=== PATIENT | female | born 1935 | race Caucasian/White ===

== ENCOUNTER → 2016-08-13 | Outpatient (CLI) | payer OTHER, MEDICARE | LOC: BHFA 14:00 | PROVIDERS: ATTEND Internal Medicine | DX: I25.10 Atherosclerotic heart disease of native coronary artery without angina pectoris (principal) ==

== ENCOUNTER → 2016-09-08 | Outpatient (CLI) | payer OTHER, MEDICARE | LOC: BHFA 14:00 | PROVIDERS: ATTEND Internal Medicine Cardiovascular Disease | DX: G45.9 Transient cerebral ischemic attack, unspecified (principal) ==

== ENCOUNTER 2016-10-17 21:56 | Emergency (ER) | payer OTHER, MEDICARE ==
[2016-10-17] MEDS ORDERED: ONDANSETRON 4 MG/2 ML VIAL ONE (22:05)
[2016-10-17] MEDS ORDERED: NS 1,000 ML IV ONE ×2 (22:12→23:23)
[2016-10-17] MEDS ORDERED: ONDANSETRON 4 MG/2 ML VIAL IVP ONE (22:12)
[2016-10-17 22:13] VITALS: TEMP 97.5
[2016-10-17 22:16] LABS: % IMMATURE GRANULYOCYTES 0.5 % (0.0-1.1); ABSOLUTE IMMATURE GRANULOCYTES 0.05 10^3/uL (0.00-0.10); ADD DIFF? NO; ADD MORPH? NO; ADD SCAN? NO; ATYPICAL LYMPHOCYTE FLAG 20 (0-99); FRAGMENT RBC FLAG 0 (0-99); HEMATOCRIT 49.5 % (38.0-47.0); HEMOGLOBIN 17.2 g/dL (12.6-16.3); LEFT SHIFT FLG 20 (0-99); LIPEMIA HEMOLYSIS FLAG 90 (0-99); MEAN CELL HEMOGLOBIN CONCENTR. 34.7 g/dL (32.4-36.7); MEAN CELL VOLUME 89.4 fL (81.5-99.8); MEAN PLATELET VOLUME 8.9 fL (8.7-11.7); PLATELET CLUMPS FLAG 0 (0-99); PLATELET COUNT 309 10^3/uL (150-400); RED BLOOD CELL COUNT 5.54 10^6/uL (4.18-5.33); RED CELL DISTRIBUTION WIDTH 13.2 % (11.5-15.2)
[2016-10-17 22:33] LABS: ANION GAP 9 mEq/L (8-16); CALCIUM 9.7 mg/dL (8.5-10.4); CARBON DIOXIDE 26 mEq/l (22-31); CHLORIDE 91 mEq/L (97-110); CREATININE 0.7 mg/dL (0.6-1.0); GLOMERULAR FILTRATION RATE > 60; GLUCOSE 135 mg/dL (70-100); POTASSIUM 3.3 mEq/L (3.5-5.2); SODIUM 126 mEq/L (134-144)
--- NOTE | 2016-10-17 23:10 | EDPHY ---
H & P Stated Complaint: NAUSEA VOMITING AND DIARRHEA Time Seen by Provider: 10/17/16 22:42 HPI/ROS: Chief Complaint: Vomiting and diarrhea HPI: 80-year-old woman states that she had an episode of vomiting after eating strip at 6 o'clock tonight. Patient states that the started out with some nausea and dry heaves that she attributes to frequent episodes of GERD. She took medicine after the onset of symptoms but vomited about 7 o'clock. She then had an episode of loose stools. 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 She frequently gets which she is describing is GERD symptoms of dry he was about every other day. She denies fevers or chills. Has not had any pain. Currently no nausea. No chest pain or shortness of breath. ROS: 10 point Review of Systems is negative except as noted in the HPI. PMH: Colitis, depression, GERD, arthritis Social History: Positive for smoking, daily alcohol, no recreational drug use Family History: non-contributory Physical Exam: Gen: Awake, Alert, No Distress HEENT: Nose: no rhinorrhea Eyes: PERRLA, EOMI Mouth: Dry mucosa Neck: Supple, no JVD Chest: nontender, lungs clear to auscultation Heart: S1, S2 normal, no murmur Abd: Soft, non-tender, no guarding Back: no CVA tenderness, no midline tenderness Ext: no edema, non-tender Skin: no rash Neuro: CN II-XII intact, Sensation grossly intact, Strength 5/5 in bilateral upper and lower extremities - Personal History Current Tetanus/Diphtheria Vaccine: Yes Current Tetanus Diphtheria and Acellular Pertussis (TDAP): Yes - Medical/Surgical History Hx Asthma: No Hx Chronic Respiratory Disease: No Hx Diabetes: No Hx Cardiac Disease: No Hx Renal Disease: No Hx Cirrhosis: No Hx Alcoholism: No Hx HIV/AIDS: No Hx Splenectomy or Spleen Trauma: No Other PMH: HTN, DEPRESSION, GERD, MICROPLASTIC COLITIS,. DEGENERATIVE DISKS, ARTHRITIS, HAND SURGERY - Social History Smoking Status: Current every day smoker Constitutional: Initial Vital Signs Temperature (C) 36.4 C 10/17/16 22:00 Heart Rate 69 10/17/16 22:00 Respiratory Rate 16 10/17/16 22:00 Blood Pressure 121/69 H 10/17/16 22:00 O2 Sat (%) 95 10/17/16 22:00 O2 Delivery Mode Room Air Allergies/Adverse Reactions: niacin [Niacin] Allergy (Verified 10/17/16 22:14) Penicillins Allergy (Verified 10/17/16 22:14) Sulfa (Sulfonamide Antibiotics) Allergy (Verified 10/17/16 22:14) Home Medications: Medication Instructions Recorded ATENOLOL [Atenolol 50 mg] 50 mg PO DAILY 05/20/11 Diovan Hct 320-12.5 mg Tab 05/20/11 FEXOFENADINE HCL 60 05/20/11 LEXAPRO 10 mg PO AC 05/20/11 Nasonex 05/20/11 Patanol 0.1% 05/20/11 Calcium + D 06/26/11 Colace 06/26/11 Fish Oil 1,400 mg Softgel 06/26/11 Garlic 06/26/11 Ibuprofen 06/26/11 Metamucil 06/26/11 Methylin 20 mg PO QID 06/26/11 Pyei-Szd-Tywuv 0.5 mg Tab Chw 06/26/11 VITAMIN B-2 06/26/11 traMADOL 06/26/11 Atorvastatin Calcium [Lipitor] 40 mg PO 10/17/16 oxyCODONE/APAP 5/325 [Percocet] 1 - 2 tab PO Q4-6PRN PRN 10/17/16 Medical Decision Making - Data Points Laboratory Results: Laboratory Results 10/17/16 22:14 10/17/16 22:14 10/17/16 10/17/16 22:14 22:14 WBC 9.81 10^3/uL H 10^3/uL (3.80-9.50) RBC 5.54 10^6/uL H 10^6/uL (4.18-5.33) Hgb 17.2 g/dL H g/dL (12.6-16.3) Hct 49.5 % H % (38.0-47.0) MCV 89.4 fL fL (81.5-99.8) MCH 31.0 pg pg (27.9-34.1) MCHC 34.7 g/dL g/dL (32.4-36.7) RDW 13.2 % % (11.5-15.2) Plt Count 309 10^3/uL 10^3/uL (150-400) MPV 8.9 fL fL (8.7-11.7) Neut % (Auto) 80.4 % H % (39.3-74.2) Lymph % (Auto) 13.4 % L % (15.0-45.0) Hale % (Auto) 5.1 % % (4.5-13.0) Eos % (Auto) 0.0 % L % (0.6-7.6) Baso % (Auto) 0.6 % % (0.3-1.7) Nucleat RBC Rel Count 0.0 % % (0.0-0.2) Absolute Neuts (auto) 7.89 10^3/uL H 10^3/uL (1.70-6.50) Absolute Lymphs (auto) 1.31 10^3/uL 10^3/uL (1.00-3.00) Absolute Monos (auto) 0.50 10^3/uL 10^3/uL (0.30-0.80) Absolute Eos (auto) 0.00 10^3/uL L 10^3/uL (0.03-0.40) Absolute Basos (auto) 0.06 10^3/uL 10^3/uL (0.02-0.10) Absolute Nucleated RBC 0.00 10^3/uL 10^3/uL (0-0.01) Immature Gran % 0.5 % % (0.0-1.1) Immature Gran # 0.05 10^3/uL 10^3/uL (0.00-0.10) Sodium 126 mEq/L L mEq/L (134-144) Potassium 3.3 mEq/L L mEq/L (3.5-5.2) Chloride 91 mEq/L L mEq/L (97-110) Carbon Dioxide 26 mEq/l mEq/l (22-31) Anion Gap 9 mEq/L mEq/L (8-16) BUN 8 mg/dL mg/dL (7-23) Creatinine 0.7 mg/dL mg/dL (0.6-1.0) Estimated GFR > 60 Glucose 135 mg/dL H mg/dL (70-100) Calcium 9.7 mg/dL mg/dL (8.5-10.4) Medications Given: Discontinued Medications Sodium Chloride (Ns) 1,000 mls @ 0 mls/hr IV ONCE ONE PRN Reason: Wide Open Stop: 10/17/16 22:13 Last Admin: 10/17/16 22:12 Dose: 1,000 mls Ondansetron HCl (Zofran) 4 mg IVP EDNOW ONE Stop: 10/17/16 22:13 Last Admin: 10/17/16 22:13 Dose: 4 mg Departure - Departure Clinical Impression: Hyponatremia, Hypokalemia, Vomiting, Dehydration Condition: Good Instructions: Hypokalemia (ED), Hyponatremia (ED), Acute Nausea and Vomiting ( ED), Acute Diarrhea (ED) Additional Instructions: Follow up with your primary care physician in 2-3 days. Make sure to drink plenty of fluids. We will need to have your blood sodium and potassium recheck next week. Return to the emergency depart for increasing nausea, vomiting and diarrhea, fevers, chills, abdominal pain, or any other concerns. Referrals: Christiana Galarza MD [Primary Care Provider] - As per Instructions
[2016-10-18 00:24] VITALS: BP 128/76; PULSE 71; RESP 18; O2SAT 94
== END 2016-10-18 00:40 | disposition home or self-care (01) ==
DX: R11.10 Vomiting, unspecified (principal); E87.6 Hypokalemia; E87.1 Hypo-osmolality and hyponatremia; E86.0 Dehydration; I10 Essential (primary) hypertension; F17.200 Nicotine dependence, unspecified, uncomplicated
CPT/HCPCS: 96361; 96374; 99284; J2405

== ENCOUNTER → 2016-10-24 | Outpatient (CLI) | payer OTHER, MEDICARE ==
[~2016-10-24] MED LIST: IOPAMIDOL (ISOVUE 370) 100 ML BTL IV ONE
== END ==
LOC: FIMAGING 12:33
PROVIDERS: ATTEND Surgery
DX: I65.22 Occlusion and stenosis of left carotid artery (principal); I65.01 Occlusion and stenosis of right vertebral artery
CPT/HCPCS: 70498; Q9967

== ENCOUNTER → 2016-11-20 | Outpatient (CLI) | payer OTHER, MEDICARE ==
[~2016-11-20] MED LIST changes: +DEPO METHYLPREDNISOLONE 40 MG/ML SDV ONE; +LIDOCAINE 1% 30 ML SDV ONE; +NA BICARBONATE 50 MEQ/50 ML VIAL ONE; +ROPIVACAINE HCL 150 MG/30 ML INJ ONE
== END ==
LOC: FIMAGING 12:42 → EEVIPCON 12:42
PROVIDERS: ATTEND Orthopaedic Surgery
PROC: 3E0U33Z Introduction of Anti-inflammatory into Joints, Percutaneous Approach (ICD-10-PCS; principal; 2016-11-20)
PROC: 3E0U3BZ Introduction of Anesthetic Agent into Joints, Percutaneous Approach (ICD-10-PCS; principal; 2016-11-20)
DX: M25.552 Pain in left hip (principal)
CPT/HCPCS: 20610; J1030; J2795; Q9967

== ENCOUNTER → 2016-12-04 | Outpatient (CLI) | payer OTHER, MEDICARE | LOC: FIMAGING 14:04 | PROVIDERS: ATTEND Internal Medicine | DX: Z12.31 Encounter for screening mammogram for malignant neoplasm of breast (principal); Z80.3 Family history of malignant neoplasm of breast | CPT/HCPCS: G0202 ==

== ENCOUNTER → 2017-01-22 | Outpatient (CLI) | payer OTHER, MEDICARE | LOC: BHFA 13:30 | PROVIDERS: ATTEND Internal Medicine Cardiovascular Disease | DX: R06.09 Other forms of dyspnea (principal); I25.10 Atherosclerotic heart disease of native coronary artery without angina pectoris | CPT/HCPCS: 78452; 93017; A9500; J2785 ==

== ENCOUNTER → 2017-04-08 | Day surgery (SDC) | payer OTHER, MEDICARE ==
[2017-03-20 16:56] LABS: HIPAA RELEASE SIGNED SIGNED
[2017-03-20 17:01] LABS: % IMMATURE GRANULYOCYTES 0.2 % (0.0-1.1); ABSOLUTE IMMATURE GRANULOCYTES 0.02 10^3/uL (0.00-0.10); ADD DIFF? NO; ADD MORPH? NO; ADD SCAN? NO; ATYPICAL LYMPHOCYTE FLAG 30 (0-99); FRAGMENT RBC FLAG 0 (0-99); HEMATOCRIT 45.8 % (38.0-47.0); HEMOGLOBIN 15.7 g/dL (12.6-16.3); LEFT SHIFT FLG 0 (0-99); LIPEMIA HEMOLYSIS FLAG 90 (0-99); MEAN CELL HEMOGLOBIN CONCENTR. 34.3 g/dL (32.4-36.7); MEAN CELL VOLUME 90.3 fL (81.5-99.8); PLATELET CLUMPS FLAG 0 (0-99); PLATELET COUNT 304 10^3/uL (150-400); RED BLOOD CELL COUNT 5.07 10^6/uL (4.18-5.33)
[2017-03-20 17:31] LABS: ANION GAP 11 mEq/L (8-16); CALCIUM 9.4 mg/dL (8.5-10.4); CARBON DIOXIDE 25 mEq/l (22-31); CHLORIDE 97 mEq/L (97-110); CREATININE 0.6 mg/dL (0.6-1.0); GLOMERULAR FILTRATION RATE > 60; GLUCOSE 92 mg/dL (70-100); POTASSIUM 4.4 mEq/L (3.5-5.2); SODIUM 133 mEq/L (134-144)
[~2017-04-08] MED LIST changes: -DEPO METHYLPREDNISOLONE 40 MG/ML SDV ONE; -IOPAMIDOL (ISOVUE 370) 100 ML BTL IV ONE; -LIDOCAINE 1% 30 ML SDV ONE; -NA BICARBONATE 50 MEQ/50 ML VIAL ONE; +ROPIVACAINE 0.2% 80 MG, EPINEPHrine 0.2 MG, KETOROLAC TROMETHAMINE 30 MG in BAG 0 ML IU ONE; -ROPIVACAINE HCL 150 MG/30 ML INJ ONE; +TRANEXAMIC ACID 3,000 MG in NS 50 ML IRR ONE
--- NOTE | 2017-04-08 07:22 | PDHPUP ---
History & Physical Update H&P update statement: This history and physical update is based on an assessment of the patient which was completed after admission or registration (within 24 hours), but prior to the surgery/procedure. H&P update: H&P reviewed & patient examined H&P changes: Patient has open wounds on her surgical leg and groin. recommend cancelling surgery today. postpone until healed
== END | disposition home or self-care (01) ==
LOC: FSGY 06:04 → F3N 06:04 → UNDOADMIN 06:04 → EDSTATUS 08:15
PROVIDERS: ATTEND Orthopaedic Surgery
DX: Z53.9 Procedure and treatment not carried out, unspecified reason (principal); M16.12 Unilateral primary osteoarthritis, left hip; M51.86 Other intervertebral disc disorders, lumbar region; F32.9 Major depressive disorder, single episode, unspecified; I10 Essential (primary) hypertension; E78.00 Pure hypercholesterolemia, unspecified
CPT/HCPCS: J0171; J1885; J2795

== ENCOUNTER 2017-06-10 08:51 | Inpatient (IN) | payer OTHER, MEDICARE ==
[2017-06-10] MEDS ORDERED: TRANEXAMIC ACID 3,000 MG/50 ML BAG IRR ONE (08:59)
[2017-06-10] MEDS ORDERED: ROPIVACAINE 0.2% 80 MG, EPINEPHrine 0.2 MG, KETOROLAC TROMETHAMINE 30 MG in SYRINGE 0 ML IU ONE (09:00)
[2017-06-10] MEDS ORDERED: TRANEXAMIC ACID 3,000 MG in NS 50 ML IRR ONE (09:00)
[2017-06-10] MEDS ORDERED: ceFAZolin 2 GM/SWFI 2 GM/20 ML SYR IVP ONE (09:07)
[2017-06-10] MEDS ORDERED: FAMOTIDINE 20 MG TAB PO ONE (09:07)
[2017-06-10] MEDS ORDERED: ACETAMINOPHEN 325 MG TAB PO ONE (09:07)
[2017-06-10] MEDS ORDERED: DEXAMETHASONE 4 MG/ML VIAL IVP ONE (09:07)
[2017-06-10] MEDS ORDERED: LR 1,000 ML IV ONE (09:09)
[2017-06-10] MEDS ORDERED: LIDOCAINE 1% 2 ML INJ ID PRN (09:09)
--- NOTE | 2017-06-10 11:06 | PDANEPAE ---
ANE History of Present Illness left KD ANE Past Medical History - Cardiovascular History Hx Hypertension: Yes Hx Arrhythmias: No Hx Chest Pain: No Hx Coronary Artery / Peripheral Vascular Disease: No Hx CHF / Valvular Disease: No Hx Palpitations: No Cardiovascular History Comment: Stenosis Left carotid-seldom dizzy;. BP good control - Pulmonary History Hx COPD: No Hx Asthma/Reactive Airway Disease: No Hx Recent Upper Respiratory Infection: No Hx Oxygen in Use at Home: No Hx Sleep Apnea: No Sleep Apnea Screening Result - Last Documented: Negative Pulmonary History Comment: smokes 1/2 ppd - Neurologic History Hx Cerebrovascular Accident: No Hx Seizures: No Hx Dementia: No - Endocrine History Hx Diabetes: No - Renal History Hx Renal Disorders: No - Liver History Hx Hepatic Disorders: No - Neurological & Psychiatric Hx Hx Neurological and Psychiatric Disorders: Yes Neurological / Psychiatric History Comment: spinal stenosis, DDD -pain in butt radiates down R leg.Anxiety, depression - Cancer History Hx Cancer: Yes Cancer History Comment: basal cell on face - Congenital Disorder History Hx Congenital Disorders: No - GI History Hx Gastrointestinal Disorders: Yes Gastrointestinal History Comment: GERD - Other Health History Other Health History: OA L hip. BRIUSES EASILY - Chronic Pain History Chronic Pain: Yes (BACK ISSUES) - Surgical History Prior Surgeries: tonsillectomy age 7. C Sections 1963,1968. appy 1968. bilat cataract extractions w/IOL. total hysterectomy. bilat hand trigger fingers ANE Review of Systems Review of systems is: negative Review of Systems: - Exercise capacity Exercise capacity: <4 METS, limited by disability METS (RN): 3 METS ANE Patient History - Allergies Allergies/Adverse Reactions: Penicillins Allergy (Severe, Verified 06/10/17 10:21) Hives, itching, welts niacin [Niacin] Allergy (Intermediate, Verified 06/10/17 10:22) Itching Sulfa (Sulfonamide Antibiotics) Allergy (Intermediate, Verified 06/10/17 10:21) Itching - Home Medications Home Medications: Aspirin EC [Aspirin EC 81 mg (*)] 81 mg PO DAILY 03/12/17 [Last Taken 05/27/17] Atenolol [Tenormin 50 mg (*)] 50 mg PO DAILY 03/12/17 [Last Taken 06/10/17 07:30 ] Atorvastatin Calcium [Atorvastatin Calcium] 20 mg PO DAILY@18 03/12/17 [Last Taken 06/10/17 07:30] Calcium Carb W/Vit D [Calcium Carb W/Vit D 500/200 (*)] 500 mg PO BID 03/12/17 [ Last Taken Unknown] Cholecalciferol Vit D3 [Vitamin D3 (*)] 1,000 units PO DAILY 03/12/17 [Last Taken Unknown] DULoxetine [Cymbalta 30 MG (*)] 30 mg PO 1500 03/12/17 [Last Taken 06/09/17 15: 00] DULoxetine [Cymbalta 60 MG (*)] 60 mg PO DAILY 03/12/17 [Last Taken 06/10/17 07: 30] Glucosamine Sulfate [Glucosamine Sulfate 500 MG (*)] 500 mg PO DAILY 03/12/17 [ Last Taken Unknown] Herbals/Supplements -Info Only 1 ea PO DAILY 03/12/17 [Last Taken Unknown] Multivitamins [Multivitamin (*)] 1 each PO DAILY 03/12/17 [Last Taken Unknown] Naproxen Sodium [Aleve 220 MG (*)] 220 mg PO BID 03/12/17 [Last Taken Unknown] [place]-3 Fatty Acids [Fish Oil 1000 mg (*)] 1,000 mg PO BID 03/12/17 [Last Taken 05/27/17] Potassium Cl [Klor-Con 20 meq (*)] 20 meq PO DAILY 03/12/17 [Last Taken 07:30] Ranitidine HCl 150 mg PO BID 03/12/17 [Last Taken 06/10/17 07:30] Valsartan [Valsartan] 320 mg PO DAILY 03/12/17 [Last Taken 06/10/17 07:30] Vitamin B Complex [Super B-50 Complex] 1 each PO DAILY 03/12/17 [Last Taken ] methYLPHENIDATE HCL [Ritalin 10mg (*)] 10 mg PO 08,1500 03/12/17 [Last Taken 12/20 09:45] - NPO status NPO Status: no food or drink >8 hours NPO Since - Liquids (Date): 06/10/17 NPO Since - Liquids (Time): 05:00 NPO Since - Solids (Date): 06/09/17 NPO Since - Solids (Time): 19:00 - Anes Hx Anes Hx: no prior problems Hx Anesthesia Complications (with details): resistant to local anes - Smoking Hx Smoking Status: Heavy smoker - Alcohol Use Alcohol Use: Occasionally (7/wk) - Family Anes Hx Family Hx Anesthesia Complications: none ANE Labs/Vital Signs - Vital Signs Vital Signs: reviewed preoperatively; see RN documention for details Blood Pressure: 120/65 Heart Rate: 63 Respiratory Rate: 14 O2 Sat (%): 94 Height: 167.64 cm Weight: 71.668 kg ANE Physical Exam - Airway Neck exam: FROM Mallampati Score: Class 2 - Pulmonary Pulmonary: expiratory wheeze - Cardiovascular Cardiovascular: regular rate and rhythym - ASA Status ASA Status: III ANE Anesthesia Plan Anesthesia Plan: spinal
[2017-06-10] MEDS ORDERED: MIDAZOLAM 2 MG/2 ML VIAL IVP ONE (11:10)
[2017-06-10] MEDS ORDERED: DEXAMETHASONE 4 MG/ML VIAL ONE (11:40)
[2017-06-10] MEDS ORDERED: ACETAMINOPHEN 325 MG TAB ONE (11:41)
[2017-06-10] MEDS ORDERED: ceFAZolin 2 GM/SWFI 20 ML SYR IVP ONE (11:41)
[2017-06-10] MEDS ORDERED: FAMOTIDINE 20 MG TAB ONE (11:41)
[2017-06-10] MEDS ORDERED: LIDOCAINE 2% 5 ML SDV ONE (11:57)
[2017-06-10] MEDS ORDERED: PROPOFOL/EMULSION 500 MG/50 ML BOTTLE IV ONE (11:57)
--- NOTE | 2017-06-10 12:21 | PDHPUP ---
History & Physical Update H&P update statement: This history and physical update is based on an assessment of the patient which was completed after admission or registration (within 24 hours), but prior to the surgery/procedure. H&P update: H&P reviewed & patient examined, no change in patient's condition since H&P completed
[2017-06-10] MEDS ORDERED: fentaNYL 100 MCG/2 ML INJ ONE (12:29)
[2017-06-10] MEDS ORDERED: ONDANSETRON 4 MG/2 ML VIAL ONE (12:57)
[2017-06-10] MEDS ORDERED: TEMAZEPAM 15 MG CAP PO PRN (13:16)
[2017-06-10] MEDS ORDERED: POLYETHYLENE GLYCOL 3350 17 GM PKT PO PRN (13:16)
[2017-06-10] MEDS ORDERED: CYCLOBENZAPRINE 10 MG TAB PO PRN (13:16)
[2017-06-10] MEDS ORDERED: ONDANSETRON 4 MG/2 ML VIAL IVP PRN ×2 (13:16→13:21)
[2017-06-10] MEDS ORDERED: LACTULOSE 20 GM/30 ML UDCUP PO PRN (13:16)
[2017-06-10] MEDS ORDERED: MAGNESIUM HYDROXIDE 30 ML UDCUP PO PRN (13:16)
[2017-06-10] MEDS ORDERED: diphenhydrAMINE 25 MG CAP PO PRN (13:16)
[2017-06-10] MEDS ORDERED: PROMETHAZINE HCL 25 MG SUPPR PR PRN (13:16)
[2017-06-10] MEDS ORDERED: BISACODYL 10 MG SUPP PR PRN (13:16)
[2017-06-10] MEDS ORDERED: PROMETHAZINE HCL 25 MG/ML INJ IVP PRN (13:16)
[2017-06-10] MEDS ORDERED: ONDANSETRON DISINTEGRATING 4 MG TAB PO PRN (13:16)
--- NOTE | 2017-06-10 13:16 | POSTOPPROG ---
Post Op Note Date of Operation: 06/10/17 Surgeon: Matt Bundy Promotional Representative: cindy bundy Anesthesiologist: dr. zayas Anesthesia: GET(General Endotracheal), Spinal Pre-op Diagnosis: Left hip OA Post-op Diagnosis: same Indication: left hip pain due to OA that failed conservative measures Procedure: L KD ant approach Findings: severe hip OA Inf/Abcess present in the surg proc area at time of surgery?: No EBL: 100-500
[2017-06-10] MEDS ORDERED: PHENYLEPHRINE HCL 100 MCG/ML SYR IVP PRN (13:21)
[2017-06-10] MEDS ORDERED: HYDROCODONE/APAP 5/325 TAB PO PRN (13:21)
[2017-06-10] MEDS ORDERED: NALOXONE HCL 0.4 MG/ML INJ IVP PRN (13:21)
[2017-06-10] MEDS ORDERED: OXYCODONE/APAP 5/325 TAB PO PRN (13:21)
[2017-06-10] MEDS ORDERED: ALBUTEROL 3 ML DEYVIAL IH PRN (13:21)
[2017-06-10] MEDS ORDERED: fentaNYL 100 MCG/2 ML INJ IVP PRN (13:21)
--- NOTE | 2017-06-10 13:21 | POSTANESTH ---
Post Anesthetic Evaluation Cardiovascular Status: Normal, Stable Respiratory Status: Normal, Stable Level of Consciousness/Mental Status: Can Participate in Eval Pain Control: Adequate, Prn Tx Ordered Nausea/Vomiting Control: Adequate, Prn Tx Ordered Complications Possibly Related to Anesthesia: None Noted
[2017-06-10] MEDS: LR 1,000 ML IV SCH ×2 (14:56→23:52)
[2017-06-10] MEDS: ACETAMINOPHEN 325 MG TAB PO SCH ×2 (17:47→23:52)
[2017-06-10] MEDS: oxyCODONE IR 5 MG TAB PO PRN (17:47)
[2017-06-10] MEDS: ceFAZolin 2 GM/DEXTROSE 100 ML IV SCH (20:12)
[2017-06-10] MEDS: FAMOTIDINE 20 MG TAB PO SCH (20:17)
[2017-06-10] MEDS: ASPIRIN EC 81 MG TAB PO SCH (20:17)
[2017-06-10] MEDS: SENNOSIDES/DOCUSATE SODIUM TAB PO SCH (20:17)
[2017-06-11] MEDS: ceFAZolin 2 GM/DEXTROSE 100 ML IV SCH (03:40)
[2017-06-11 05:20] LABS: HEMATOCRIT 38.5 % (38.0-47.0); HEMOGLOBIN 12.9 g/dL (12.6-16.3)
[2017-06-11 05:36] LABS: ANION GAP 8 mEq/L (8-16); CALCIUM 8.6 mg/dL (8.5-10.4); CARBON DIOXIDE 22 mEq/l (22-31); CHLORIDE 104 mEq/L (97-110); CREATININE 0.6 mg/dL (0.6-1.0); GLOMERULAR FILTRATION RATE > 60; GLUCOSE 128 mg/dL (70-100); POTASSIUM 4.3 mEq/L (3.5-5.2); SODIUM 134 mEq/L (134-144)
[2017-06-11] MEDS: ACETAMINOPHEN 325 MG TAB PO SCH ×4 (05:59→23:56)
[2017-06-11] MEDS: VALSARTAN 160 MG TAB PO SCH (08:31)
[2017-06-11] MEDS: POTASSIUM CL 20 MEQ TAB PO SCH (08:32)
[2017-06-11] MEDS: FAMOTIDINE 20 MG TAB PO SCH ×3 (08:32→21:16)
[2017-06-11] MEDS: ATENOLOL 50 MG TAB PO SCH (08:32)
[2017-06-11] MEDS: oxyCODONE IR 5 MG TAB PO PRN ×3 (08:32→23:56)
[2017-06-11] MEDS: DULoxetine 60 MG CAP PO SCH (08:32)
[2017-06-11] MEDS: ASPIRIN EC 81 MG TAB PO SCH ×2 (08:33→21:16)
[2017-06-11] MEDS: SENNOSIDES/DOCUSATE SODIUM TAB PO SCH ×2 (08:38→21:18)
[2017-06-11] MEDS ORDERED: NON-FORMULARY NEW DRUG (Ranitidine Hcl [Ranitidine Hcl] 150 MG) PO SCH (09:00)
[2017-06-11] MEDS ORDERED: VALSARTAN 320 MG PO SCH (09:00)
--- NOTE | 2017-06-11 13:12 | SOAPPROG ---
SOAP Progress Note Assessment/Plan: Assessment: Rubina is doing well POD 1 s/p L KD 1). pain management: pain well controlled on oral pain meds 2) VTE ppx: aspirin 81 mg BID for 4 weeks recommended 3) d/c planning: d/c to home today vs tomorrow pending patient improving and comfort level as well as pending release from PT Plan: 06/11/17 13:10 06/11/17 13:11 Subjective: Rubina is doing well today, denies SOB, chest pain and n/v. Objective: Vital Signs Temp Pulse Resp BP Pulse Ox 36.8 C 61 12 138/58 H 95 06/11/17 12:00 06/11/17 12:00 06/11/17 12:00 06/11/17 12:00 06/11/17 12:00 Laboratory Results 06/11/17 04:38 06/11/17 05:00 06/10/17 06/11/17 06/12/17 05:59 05:59 05:59 Intake Total 4603 Output Total 200 300 Balance 4403 -300 LLE: incision dressing is clean and dry, NVI, +pf/df ICD10 Worksheet Patient Problems: Problems Problem Status Onset Primary localized osteoarthritis of left hip Acute
--- NOTE | 2017-06-11 14:49 | ASMTCMCOM ---
CM Note CM Note Notes: PT/OT clear pt for home. Anticipate pt will d/c when medically stable with support of son who will stay w her. No CM d/c needs identified at this time. CM available for changes/needs. Date Signed: 06/11/2017 02:48 PM Electronically Signed By:KANDI Rodas
--- NOTE | 2017-06-11 14:54 | GOP ---
[f rep st] OPERATIVE REPORT DATE OF OPERATION: 06/10/2017 SURGEON: Gina Cohn MD SHANK RANDER: ZEYNEP Coleman. ANESTHESIA: Spinal. PREOPERATIVE DIAGNOSIS: Left hip osteoarthritis. POSTOPERATIVE DIAGNOSIS: Left hip osteoarthritis. PROCEDURE PERFORMED: Left total hip arthroplasty with x-ray. FINDINGS: INDICATIONS: The patient has progressively worsening arthritis of the hip which has failed medical m anagement. The patient understands the treatment options including continued non-operative care and has selected surgical intervention. The patient has decided to undergo total hip arthroplasty via th e direct anterior approach, understanding the risks of the procedure including, but not limited to, n eurovascular injury, infection, persistent pain, component wear and loosening, deep venous thrombosis , pulmonary embolism, limb length inequality, hip instability (including dislocation), and intra-oper ative fractures. DESCRIPTION OF PROCEDURE: After proper identification of the patient including verification and yasmine ing the surgical site, the patient was brought to the operating room and placed in the supine positio n. All bony prominences were well padded. Anesthesia was induced without complication and intraveno us prophylactic antibiotics were administered prior to skin incision. The operative leg was placed in the Trumpf Arch table extension and the well leg in a Yellofin leg ho lder. The patient was prepped and draped in the usual sterile fashion. The C-arm was draped for int ra-operative fluoroscopy to check acetabular position, femoral component position including leg lengt h and femoral offset. Attention was then drawn to surgical exposure of the hip. An incision was made with a #10 Bard Consuelo r blade starting 3 cm lateral and 3 cm distal to the anterior superior iliac spine measuring 8-10 cm and coursing distally toward the greater trochanter. The skin and subcutaneous tissues were divided sharply down to the fascia josselyn. The fascia josselyn was incised in line with the skin incision exposing the underlying tensor fascia josselyn muscle. The muscle was bluntly elevated from the fascia and the f irst extracapsular Cobra retractor was placed laterally at the junction of the superior femoral neck and greater trochanter. The lateral femoral circumflex vessels were identified, cauterized, and divi ded with the Aquamantys bipolar cautery. The deep investing fascia of the TFL was divided to allow p kiara mobilization of the muscle preventing damage during the retraction. The reflected head of the rectus femoris muscle was elevated off the anterior hip capsule and a medial Cobra retractor was plac ed just proximal to the lesser trochanter. The anterior capsulotomy was made sharply from the superolateral acetabulum to the saddle junction of the superior femoral neck and greater trochanter, then coursing inferomedial towards the lesser troc hanter. The retractors were then placed in the intracapsular position for femoral neck osteotomy. C orresponding to pre-operative templating, the osteotomy was made with the oscillating saw carefully p rotecting the greater trochanter and soft tissues. The femoral head was removed from the acetabulum with a corkscrew and confirmed to be severely arthritic with exposed bone, deformity and osteophytes. Similar findings were confirmed in the acetabulum. The Arch table extension was then placed in 40 degrees external rotation. Attention was then drawn to the acetabular preparation. After placement of the anterior and posterio r Cobra retractors outside the labrum and intracapsular, the circumferential labrum was removed sharp ly. The foveal contents were then removed and hemostasis obtained with cautery. The first reamer selected was sized using the removed femoral head. Reaming began with medialization and then commenced in 2 mm increments at 45 degrees of abduction and 15 degrees of anteversion using fluoroscopic navigation. Reaming ceased 1 mm less than the definitive acetabular component and messi esponded to the pre-operative templating. The final acetabular component was inserted using fluorosc opy to achieve proper orientation yielding excellent purchase and stability in the acetabulum. The f inal acetabular liner was then placed and its seating confirmed. Attention was then turned to the femur. The Arch table extension was placed in extension and adducti on, delivering the osteotomized femoral neck into the wound. A 2-pronged femoral elevator was placed at the calcar and another at the tip of the greater trochanter. The posterolateral capsule was rele ased with cautery allowing mobilization of the femur lateral and anterior for preparation. The exter nal rotators were visualized and preserved. A curette and rongeur were used to open the starting poi nt for broaching. Serial broaching started with the #0 broach and ended with the broach that exhibit ed excellent fit in the proximal femur. A change in pitch during mallet strikes was accompanied by t he inability to advance the broach any further. The trial reduction was performed and fluoroscopic n avigation was utilized to check limb length. Adjustments were made to equalize limb length according ly. After the final trials were accepted they were removed and the wound was copiously lavaged. The femo ral component was seated to the same depth as the final broach and the femoral head was impacted onto the clean trunnion. The hip was then reduced for the final time and once more fluoroscopy was used to check that limb length equality was achieved. The wound was irrigated and closed in layers, the fascia josselyn with 2-0 Quill, the subcutaneous tissue with 2-0 Quill, and the skin with Dermabond. Sterile dressings were applied. Final sharps and spon ge counts were accurate. The patient was then transferred to a hospital bed and brought to the [facility] room in stable condition. IMPLANTS: Accolade II size 4 at 127. Acetabular component a 50 mm Tritanium. The liner is a Triden t X3, 32 mm. The head is a Biolox Delta 32 mm +0. /[id number]/MODL
[2017-06-11] MEDS ORDERED: DULoxetine 30 MG CAP PO SCH (15:00)
[2017-06-11] MEDS ORDERED: ATORVASTATIN CALCIUM 20 MG TAB PO SCH (18:00)
[2017-06-12] MEDS: ACETAMINOPHEN 325 MG TAB PO SCH ×2 (04:29→14:21)
[2017-06-12 04:41] LABS: HEMOGLOBIN 13.3 g/dL (12.6-16.3)
[2017-06-12 07:31] VITALS: BP 155/75; RESP 12; TEMP 98.6; O2SAT 90
[2017-06-12] MEDS: POTASSIUM CL 20 MEQ TAB PO SCH (08:35)
[2017-06-12] MEDS: DULoxetine 60 MG CAP PO SCH (08:35)
[2017-06-12] MEDS: FAMOTIDINE 20 MG TAB PO SCH (08:35)
[2017-06-12] MEDS: ATENOLOL 50 MG TAB PO SCH (08:36)
[2017-06-12] MEDS: ASPIRIN EC 81 MG TAB PO SCH (08:36)
[2017-06-12] MEDS: VALSARTAN 160 MG TAB PO SCH (08:36)
[2017-06-12 08:37] VITALS: PULSE 64
[2017-06-12] MEDS: SENNOSIDES/DOCUSATE SODIUM TAB PO SCH (08:37)
--- NOTE | 2017-06-12 13:35 | PDFACE2FAC ---
Face to Face Encounter 1. I certify that this patient is under my care and that I, or a nurse practitioner or physician's pediatric assistant working with me, had a [id number] encounter that meets the physician [id number] encounter requirements with this patient on 06/12/17. 2. I certify that based on my findings, the following services are medically necessary home health services: [X Nursing] [X Physical Therapy] [Speech-Language Pathology] 3. The medical condition and clinical findings that support the need for specialized skills, knowledge and judgement of the above services are: [s/p KD, patient must use FWW postop and cannot drive. she is homebound] 4. I certify this patient is homebound* because [the patient's condition restricts their ability to leave their home except with the assistance of another individual or the aid of a supportive device.] s/p KD must use FWW I certify that this patient is confined to his/her home and needs intermittent half-way care, physical and/or speech therapy. This patient is under my care and I have authorized home health services. * Homebound is defined by Medicare as follows: absences from home require considerable and tacking effort and or for medical reasons or amish services or are infrequent or of short duration when for other reasons*.
--- NOTE | 2017-06-12 13:37 | PDIAF ---
- Diagnosis Diagnosis: KD Code Status: Full Code - Medication Management Discharge Medications: Medications to Continue on Transfer Atenolol [Tenormin 50 mg (*)] 50 mg PO DAILY 03/12/17 [Last Taken 06/10/17 07:30 ] Atorvastatin Calcium 20 mg PO DAILY@18 03/12/17 [Last Taken 06/10/17 07:30] Calcium Carb W/Vit D [Calcium Carb W/Vit D 500/200 (*)] 500 mg PO BID 03/12/17 [ Last Taken 05/27/17] Cholecalciferol Vit D3 [Vitamin D3 (*)] 1,000 units PO DAILY 03/12/17 [Last Taken 05/27/17] DULoxetine [Cymbalta 30 MG (*)] 30 mg PO 1500 03/12/17 [Last Taken 06/09/17 15: 00] DULoxetine [Cymbalta 60 MG (*)] 60 mg PO DAILY 03/12/17 [Last Taken 06/10/17 07: 30] Glucosamine Sulfate [Glucosamine Sulfate 500 MG (*)] 500 mg PO DAILY 03/12/17 [ Last Taken 05/27/17] Herbals/Supplements -Info Only 1 ea PO DAILY 03/12/17 [Last Taken Unknown] Multivitamins [Multivitamin (*)] 1 each PO DAILY 03/12/17 [Last Taken Unknown] [place]-3 Fatty Acids [Fish Oil 1000 mg (*)] 1,000 mg PO BID 03/12/17 [Last Taken 05/27/17] Potassium Cl [Klor-Con 20 meq (*)] 20 meq PO DAILY 03/12/17 [Last Taken 07:30] Ranitidine HCl 150 mg PO BID 03/12/17 [Last Taken 06/10/17 07:30] Valsartan 320 mg PO DAILY 03/12/17 [Last Taken 06/10/17 07:30] Vitamin B Complex [Super B-50 Complex] 1 each PO DAILY 03/12/17 [Last Taken ] methYLPHENIDATE HCL [Ritalin 10mg (*)] 10 mg PO 08,1500 03/12/17 [Last Taken 12/20 09:45] Acetaminophen [Tylenol 325mg (*)] 650 mg PO Q6HRS tab 06/12/17 [Last Taken Unknown] Aspirin EC [Aspirin EC 81 mg (*)] 81 mg PO BID tab 06/12/17 [Last Taken Unknown ] Cyclobenzaprine [Flexeril 10 MG (*)] 10 mg PO Q8HRS PRN tab 06/12/17 [Last Taken Unknown] Sennosides/Docusate Sodium [Senokot-S] 1 - 2 tab PO BID tab 06/12/17 [Last Taken Unknown] oxyCODONE IR [Oxycodone Ir (*)] 5 - 10 mg PO Q3HRS PRN tab 06/12/17 [Last Taken Unknown] Discharge Medications: Refer to the Discharge Home Medication list for PRN reason. - Orders Services needed: Home Care, Registered Nurse, Physical Therapy Home Care Face to Face: I certify that this patient was under my care and that I had the required [id number] encounter meeting the encounter requirements on the discharge day. My findings support the fact that the patient is homebound as defined in Home Care Face to Face Continued: CMS Chapter 7 Medicare Benefits Manual 30.1.1 , The condition of the patient is such that there exists a normal inability to leave home and consequently, leaving home would require a considerable and taxing effort. Diet Recommendation: no restrictions on diet Diet Texture: Regular Texture Diet John Stockings Discontinue Date: daytime x 2 weeks postop Wound Care Instructions: remove incision dressing in 2 weeks. should be waterproof. may shower Activity/Weight Bearing Restrictions: WBAT with FWW - Follow Up Care Current Providers and Referrals: Matt Cohn MD [Medical Doctor] - Christiana Galarza MD [Primary Care Provider] -
--- NOTE | 2017-06-12 14:37 | ASDISCHSUM ---
Discharge Information Plan Status:Home with Home Health Medically Cleared to Leave: Discharge Date:06/12/2017 02:30 PM CM D/C Disposition:Home Health Service ADT D/C Disposition:Home, Routine, Self-Care Projected Discharge Date:06/12/2017 11:00 AM Transportation at D/C: Discharge Delay Reason: Follow-Up Date:06/12/2017 11:00 AM Discharge Slot: Final Diagnosis: Placement Information Referral Type:*Home Health Care Services Referral ID:[id number] Provider Name:[facility] [place] Address 1:[facility] [address] Address 2: City:[place] Selection Factors: State:[place] Patient Contact Information Contact Name:GOPI Relationship:Son Address: Home Phone: City:[facility] Phone: State/[facility] Code:[place] Email: Financial Information Financial Class: Primary Plan Desc:MEDICARE INPATIENT Primary Plan Number:[id number] Secondary Plan Desc:[employer]/MDR SUPPLEMENT Secondary Plan Number:[id number] Assessment Information [facility] CM Progress Note CM Note CM Note Notes: PT/OT clear pt for home. Anticipate pt will d/c when medically stable with support of son who will stay w her. No CM d/c needs identified at this time. CM available for changes/needs. Date Signed: 06/11/2017 02:48 PM Electronically Signed By:KANDI Rodas [facility] CM Progress Note CM Note CM Note Notes: Today PT rec HHC, pt agreeable. Orders sent in All[employer] to [facility]. Pt son will stay w her until Thursday. Date Signed: 06/12/2017 02:36 PM Electronically Signed By:KANDI Rodas Intervention Information Intervention Type:*Incorrect Registration Date of Service:06/10/2017 03:02 PM Patient Type:Inpatient Staff Member:UMA Worthington Susan Hours: Discipline: Severity: Comment:
== END 2017-06-12 14:30 | disposition home or self-care (01) | DRG 470 ==
LOC: FSGY 08:51 → F3N 08:52 → OBSVTOIN 13:17 → F3N 14:35
PROVIDERS: ADMIT Orthopaedic Surgery; ATTEND Orthopaedic Surgery
PROC: 0SRB04Z Replacement of Left Hip Joint with Ceramic on Polyethylene Synthetic Substitute, Open Approach (ICD-10-PCS; principal; 2017-06-10 11:15)
DX: M16.12 Unilateral primary osteoarthritis, left hip (principal); Z87.891 Personal history of nicotine dependence
CPT/HCPCS: 97110-GP; 97116-GP; 97161-GP; 97165-GO; 97535-GO; G8978-GP-CK; G8979-GP-CI; G8980-GP-CI; G8988-GO-CI; G8989-GO-CI; G8990-GO-CI; G8991-GO-CI; J0171; J0690; J1100; J1885; J2250; J2370; J2405; J2704; J2795; J3010

== ENCOUNTER → 2017-07-01 | Outpatient (CLI) | payer OTHER, MEDICARE ==
[~2017-07-01] MED LIST changes: +IOPAMIDOL (ISOVUE 370) 100 ML BTL IV ONE; -ROPIVACAINE 0.2% 80 MG, EPINEPHrine 0.2 MG, KETOROLAC TROMETHAMINE 30 MG in BAG 0 ML IU ONE; -TRANEXAMIC ACID 3,000 MG in NS 50 ML IRR ONE
== END ==
LOC: FIMAGING 13:31
PROVIDERS: ATTEND Surgery
DX: I65.23 Occlusion and stenosis of bilateral carotid arteries (principal)
CPT/HCPCS: 70498; Q9967

== ENCOUNTER 2017-07-13 12:23 | Inpatient (IN) | payer OTHER, MEDICARE ==
--- NOTE | 2017-07-13 13:21 | EDPHY ---
HPI/HX/ROS/PE/MDM Narrative: CHIEF COMPLAINT: Low back pain HISTORY OF PRESENT ILLNESS: The patient is a 81 y/o female with a history of a left hip replacement and degenerative disks, complaining of lower back pain for 8 days. On 06/10/17, 1 month ago, she had a left hip arthroplasty. 8 days ago she stood up and developed right sided pelvic and low back pain, in the same are of a prior spinal stenosis. Due to this pain and weakness she has difficulty walking. Her symptoms are worse in the morning and remain constant throughout the afternoon. Took oxycodone and muscle relaxant for pain, last took Flexeril at 04:00 and oxycodone at 10:00, 3 hours ago. Denies prior history of pulmonary or cardiac diseases. Denies history of PE or DVT. No fever, chills, chest pain, shortness of breath, palpitations, vomiting, diarrhea, urinary complaints, headache, lightheadedness. REVIEW OF SYSTEMS: Aside from elements discussed in the HPI, a comprehensive 10-point review of systems was reviewed and is negative. PAST MEDICAL HISTORY: Left hip arthroplasty, hypertension, carotid artery stenosis, GERD, microplastic colitis, degenerative disks, arthritis SOCIAL HISTORY: Son at bedside, lives in [place], retired VITAL SIGNS: Reviewed by me GENERAL: Well-developed, well-nourished, sitting upright. Uncomfortable when moving about. HEENT: Atraumatic. Eyes: No icterus, no injection. Mouth: moist mucous membranes. No erythema or lesions. Neck: supple with no adenopathy. LUNGS: Clear to auscultation bilaterally, no wheezes, rhonchi or rales. CARDIAC: Regular rate and rhythm, no rubs, murmurs or gallops. ABDOMEN: Soft, nontender, nondistended, bowel sounds normal. BACK: Moderate tenderness over the low sacrum, right side greater than left. Tenderness on low lumbar spine and right paraspinous area. No erythema or edema. No CVA tenderness. EXTREMITIES: Well healing left hip arthroplasty scar. No trauma. No edema. Range of motion is normal throughout. NEURO: Alert and oriented, grossly nonfocal. Motor strength 3 over 5 in lower extremity major muscle groups, possibly secondary to pain. 5/5 plantar and dorsiflexion. Sensation intact to light touch. SKIN: Warm and dry, no rash. PSYCHIATRIC: Normal mentation, no agitation. Portions of this note were transcribed by a medical professionals. I personally performed a history, physical exam, medical decision making, and confirmed accuracy of information the transcribed note. ED Course: The patient is a 81 y/o female with a history of a left hip arthroplasty and degenerative disks, presenting with sacral and right paralumbar tenderness to palpation. On exam her motor strength is 3/5 in her lower extremity major muscle groups. However she has 5/5 plantar and dorsiflexion motor strength. Lumbar MRI, UA, BMP, and CBC ordered. 4mg IV Morphine and 4mg IV Zofran administered. 1527: Spoke with radiologist, he reports the patient has an acute insufficiency fracture in her sacrum. Patient will need to be admitted for pain control. 1530: Consulted with hospitalist service, Dr. Freeman accepts admission of this patient. Reassessed patient and discussed imaging findings. She is comfortable with plan for admission. 1539: Consulted with Dr. Cohn's physician administrative assistant regarding the patient' s current symptoms. They agree to follow this patient during her admission. MDM: After history was obtained and physical exam performed, the differential for back pain was considered including but not limited to muscular pain, herniated disc, spine fracture, intra-abdominal causes, and urinary tract infection. - Data Points Imaging Results: Imaging Impressions Lumbar Spine MRI 07/13/17 13:22 Impression: 1. Multilevel degenerative disk and degenerative joint disease of the lumbar spine. The most significant levels of encroachment are at L2-L3 and L4-L5, with severe central spinal canal and neural foraminal narrowing. Please see detailed description by level above. 2. Moderate chronic anterior wedge compression deformity of L3. 3. Bilateral insufficiency fracture of the sacrum, more severe on the right than the left. Results called and discussed with Karla Loyd MD, on 07/13/2017, 15:27. Imaging: Discussed imaging studies w/ scallop binder Radiologist Laboratory Results: Laboratory Results 07/13/17 13:35 07/13/17 13:35 07/13/17 07/13/17 07/13/17 14:10 13:35 13:35 WBC 10.42 10^3/uL H 10^3/uL (3.80-9.50) RBC 4.91 10^6/uL 10^6/uL (4.18-5.33) Hgb 14.8 g/dL g/dL (12.6-16.3) Hct 43.0 % % (38.0-47.0) MCV 87.6 fL fL (81.5-99.8) MCH 30.1 pg pg (27.9-34.1) MCHC 34.4 g/dL g/dL (32.4-36.7) RDW 14.5 % % (11.5-15.2) Plt Count 325 10^3/uL 10^3/uL (150-400) MPV 9.1 fL fL (8.7-11.7) Neut % (Auto) 69.9 % % (39.3-74.2) Lymph % (Auto) 18.9 % % (15.0-45.0) [place] % (Auto) 10.1 % % (4.5-13.0) Eos % (Auto) 0.1 % L % (0.6-7.6) Baso % (Auto) 0.8 % % (0.3-1.7) Nucleat RBC Rel Count 0.0 % % (0.0-0.2) Absolute Neuts (auto) 7.29 10^3/uL H 10^3/uL (1.70-6.50) Absolute Lymphs (auto) 1.97 10^3/uL 10^3/uL (1.00-3.00) Absolute Monos (auto) 1.05 10^3/uL H 10^3/uL (0.30-0.80) Absolute Eos (auto) 0.01 10^3/uL L 10^3/uL (0.03-0.40) Absolute Basos (auto) 0.08 10^3/uL 10^3/uL (0.02-0.10) Absolute Nucleated RBC 0.00 10^3/uL 10^3/uL (0-0.01) Immature Gran % 0.2 % % (0.0-1.1) Immature Gran # 0.02 10^3/uL 10^3/uL (0.00-0.10) Sodium 134 mEq/L mEq/L (134-144) Potassium 4.8 mEq/L mEq/L (3.5-5.2) Chloride 99 mEq/L mEq/L (97-110) Carbon Dioxide 27 mEq/l mEq/l (22-31) Anion Gap 8 mEq/L mEq/L (8-16) BUN 9 mg/dL mg/dL (7-23) Creatinine 0.5 mg/dL L mg/dL (0.6-1.0) Estimated GFR > 60 Glucose 109 mg/dL H mg/dL (70-100) Calcium 9.5 mg/dL mg/dL (8.5-10.4) Urine Color ROLANDO Urine Appearance HAZY Urine pH 5.0 (5.0-7.5) Ur Specific [place] 1.018 (1.002-1.030) Urine Protein NEGATIVE (NEGATIVE) Urine Ketones NEGATIVE (NEGATIVE) Urine Blood NEGATIVE (NEGATIVE) Urine Nitrate NEGATIVE (NEGATIVE) Urine Bilirubin NEGATIVE (NEGATIVE) Urine Urobilinogen 2.0 EU H EU (0.2-1.0) Ur Leukocyte Esterase NEGATIVE (NEGATIVE) Urine RBC 1-3 /hpf /hpf (0-3) Urine WBC 1-3 /hpf /hpf (0-3) Ur Epithelial Cells TRACE /lpf /lpf (NONE-1+) Urine Bacteria TRACE /hpf H /hpf (NONE SEEN) Hyaline Casts 1-5 /lpf /lpf (0-1) Urine Mucus 1+ /lpf /lpf (NONE-1+) Urine Glucose NEGATIVE (NEGATIVE) Medications Given: Discontinued Medications Morphine Sulfate (Morphine) 4 mg IVP EDNOW ONE Stop: 07/13/17 13:23 Last Admin: 07/13/17 13:36 Dose: 4 mg Ondansetron HCl (Zofran) 4 mg IVP EDNOW ONE Stop: 07/13/17 13:24 Last Admin: 07/13/17 13:40 Dose: 4 mg General Time Seen by Provider: 07/13/17 13:03 Initial Vital Signs: Initial Vital Signs Temperature (C) 36.7 C 07/13/17 12:25 Heart Rate 70 07/13/17 12:25 Respiratory Rate 16 07/13/17 12:25 Blood Pressure 115/57 L 07/13/17 12:25 O2 Sat (%) 92 07/13/17 12:25 O2 Delivery Mode Nasal Cannula O2 (L/minute) 3 Allergies/Adverse Reactions: Penicillins Allergy (Severe, Verified 06/10/17 10:21) Hives, itching, welts niacin [Niacin] Allergy (Intermediate, Verified 06/10/17 10:22) Itching Sulfa (Sulfonamide Antibiotics) Allergy (Intermediate, Verified 06/10/17 10:21) Itching Home Medications: Medication Instructions Recorded Atenolol [Tenormin 50 mg (*)] 50 mg PO DAILY 03/12/17 Calcium Carb W/Vit D [Calcium Carb 500 mg PO BID 03/12/17 W/Vit D 500/200 (*)] Cholecalciferol Vit D3 [Vitamin D3 1,000 units PO DAILY 03/12/17 (*)] DULoxetine [Cymbalta 30 MG (*)] 30 mg PO 1500 03/12/17 DULoxetine [Cymbalta 60 MG (*)] 60 mg PO DAILY 03/12/17 Glucosamine Sulfate [Glucosamine 500 mg PO DAILY 03/12/17 Sulfate 500 MG (*)] Herbals/Supplements -Info Only 1 ea PO DAILY 03/12/17 Multivitamins [Multivitamin (*)] 1 each PO DAILY 03/12/17 [place]-3 Fatty Acids [Fish Oil 1000 1,000 mg PO BID 03/12/17 mg (*)] Potassium Cl [Klor-Con 20 meq (*)] 20 meq PO DAILY 03/12/17 Ranitidine HCl 150 mg PO BID 03/12/17 Valsartan 320 mg PO DAILY 03/12/17 Vitamin B Complex [Super B-50 1 each PO DAILY 03/12/17 Complex] methYLPHENIDATE HCL [Ritalin 10mg 10 mg PO 08,1500 03/12/17 (*)] Aspirin EC [Aspirin EC 81 mg (*)] 81 mg PO BID tab 06/12/17 Cyclobenzaprine [Flexeril 10 MG 10 mg PO Q8HRS PRN tab 06/12/17 (*)] oxyCODONE IR [Oxycodone Ir (*)] 5 - 10 mg PO Q3HRS PRN tab 06/12/17 Acetaminophen [Tylenol 325mg (*)] 650 mg PO Q6HRS PRN 07/13/17 Calcium Polycarbophil [FIBERCON] 625 mg PO HS 07/13/17 Sennosides/Docusate Sodium 1 - 2 tab PO BID PRN 01/08/18 [Senokot-S] Departure - Departure Disposition: [facility] Inpatient Acute Clinical Impression: Pain management Sacral insufficiency fracture Qualifiers: Encounter type: initial encounter Qualified Code(s): M84.48XA - Pathological fracture, other site, initial encounter for fracture Condition: Fair Report Scribed for: Karla Loyd Report Scribed by: Kandy Hess Date of Report: 07/13/17 Time of Report: 13:09
[2017-07-13] MEDS ORDERED: ONDANSETRON 4 MG/2 ML VIAL IVP ONE (13:23)
[2017-07-13 13:49] LABS: PLATELET COUNT 325 10^3/uL (150-400)
[2017-07-13] MEDS ORDERED: HYDROmorphONE/DILAUDID 1 MG/ML INJ IVP ONE (15:56)
[2017-07-13] MEDS ORDERED: ACETAMINOPHEN 325 MG TAB PO PRN ×2 (18:43→18:45)
[2017-07-13] MEDS ORDERED: ONDANSETRON 4 MG/2 ML VIAL IVP PRN (18:43)
--- NOTE | 2017-07-13 19:18 | GHP ---
[f rep st] HISTORY AND PHYSICAL DATE OF ADMISSION: 07/13/2017 CHIEF COMPLAINT: Back pain. HISTORY OF PRESENT ILLNESS: This is a 81-year-old female with a history of known lumbar stenosis. S he had a left hip replacement done in early June. She had been doing well until about 8 days ago , when she got up from a chair and developed sudden back pain in her lower back, which she describes as a bandlike pain. There is no radiation to her legs. No numbness or tingling. She saw her [facility] doctor, and was sent here for an MRI, which shows bilateral sacral insufficiency fractures, mo re severe on the right than the left. She has been unable to bear weight. She cannot take care of h erself. No fevers or chills. REVIEW OF SYSTEMS: A 10-point review of systems was obtained, and has been negative. PAST MEDICAL HISTORY: 1. Carotid stenosis, for which she sees Dr. Blevins. 2. Depression. 3. Hypertension. MEDICATIONS: Reviewed. SOCIAL HISTORY: No smoking. Does live alone. She has been for 2 years. FAMILY HISTORY: Reviewed and noncontributory. PHYSICAL EXAMINATION: VITAL SIGNS: Afebrile. Blood pressure is 136/70, heart rate 64, oxygen satur ation 96% on 3 L. GENERAL: The patient is well developed. No apparent distress. HEENT: Nonicteri c sclerae. Extraocular movements intact. Moist mucous membranes. NECK: Supple. No thyromegaly. LUNGS: Good effort. Clear to auscultation bilaterally. CARDIOVASCULAR: Regular rate and rhythm. No murmurs, rubs, or gallops. ABDOMEN: Positive bowel sounds. Soft, nontender, nondistended. No h epatosplenomegaly. BACK: Significant tenderness in her sacral area and paraspinal muscles. EXTREMI TIES: No clubbing, cyanosis, or edema. SKIN: Without rash. Dry, intact. NEUROLOGIC: Alert, orie nted x3. She has bilateral lower extremity weakness, most likely due to pain. LABS: White count is 10, hemoglobin 14, platelets are 325. Chemistry is normal. MRI of the lumbar spine shows bilateral sacral insufficiency fractures as well as extensive, multilev el spinal stenosis. ASSESSMENT: This is a 81-year-old female, with sacral insufficiency fractures. PLAN: 1. Sacral insufficiency fractures. Her orthopedic surgeon's (Dr. Cohn) [place] was notified, and th ey will follow. No apparent distress. There would be pain control, and they can elucidate weightbea ring status for her. I do not think this pain is from her spinal stenosis; it is not radicular natur e. I do think her weakness is most likely due to significant pain. 2. Severe spinal stenosis. She had seen Dr. Campo in the past. 3. Hypertension. Will continue medications. 4. Recent hip fracture. 5. DVT prophylaxis. Lovenox. 6. Disposition: Probably will need placement. /[id number]/MODL
[2017-07-13] MEDS: ASPIRIN EC 81 MG TAB PO SCH (20:36)
[2017-07-13] MEDS: FAMOTIDINE 20 MG TAB PO SCH (20:36)
[2017-07-13] MEDS: CALCIUM CARB W/VIT D 500 MG TAB PO SCH (20:36)
[2017-07-13] MEDS: oxyCODONE IR 5 MG TAB PO PRN (20:39)
[2017-07-13] MEDS ORDERED: CALCIUM POLYCARBOPHIL 625 MG PO SCH (21:00)
[2017-07-14] MEDS: oxyCODONE IR 5 MG TAB PO PRN ×5 (04:27→20:38)
[2017-07-14] MEDS: CYCLOBENZAPRINE 10 MG TAB PO PRN ×2 (08:36→16:58)
[2017-07-14] MEDS: VALSARTAN 160 MG TAB PO SCH (08:36)
[2017-07-14] MEDS: VITAMIN B COMPLEX 1 EA CAP/TAB PO SCH (08:37)
[2017-07-14] MEDS: FAMOTIDINE 20 MG TAB PO SCH ×2 (08:37→20:38)
[2017-07-14] MEDS: ATENOLOL 50 MG TAB PO SCH (08:37)
[2017-07-14] MEDS: POTASSIUM CL 20 MEQ TAB PO SCH (08:37)
[2017-07-14] MEDS: CHOLECALCIFEROL VIT D3 1,000 UNITS TAB PO SCH (08:38)
[2017-07-14] MEDS: DULoxetine 60 MG CAP PO SCH (08:38)
[2017-07-14] MEDS: CALCIUM CARB W/VIT D 500 MG TAB PO SCH ×2 (08:38→20:38)
[2017-07-14] MEDS: ASPIRIN EC 81 MG TAB PO SCH ×2 (08:39→20:38)
[2017-07-14] MEDS: ENOXAPARIN 40 MG/0.4 ML SYR SC SCH (08:40)
[2017-07-14] MEDS: LIDOCAINE 5% 1 EA PATCH TD SCH (13:27)
--- NOTE | 2017-07-14 13:41 | HOSPPROG ---
Hospitalist Progress Note Assessment/Plan: 81y female with c/o back pain. First encounter, chart reviewed. D/W CM. #Sacral fx Bilateral, cont supportive care try lidoderm patch await consult Dr Cohn #Severe spinal stenosis stable L3 wedge fx chronic see Dr Claudio Campo #Weakness multiple issues cont PT/OT #Hx HTN stable meds #Recent hip fx cont PT/OT #Dispo unclear, may need SNF rehab await PT/OT eval cont supportive care pain management Subjective: Up in the chair. Still having significant pain. Objective: Vital Signs Temp Pulse Resp BP Pulse Ox 36.8 C 69 16 132/56 H 97 07/14/17 08:25 07/14/17 08:37 07/14/17 08:25 07/14/17 08:37 07/14/17 08:25 07/13/17 07/14/17 07/15/17 05:59 05:59 05:59 Intake Total 200 Output Total 575 Balance -375 - Physical Exam Constitutional: no apparent distress, appears nourished, not in pain Eyes: PERRL, anicteric sclera, EOMI Ears, Nose, Mouth, Throat: moist mucous membranes, hearing normal, ears appear normal Cardiovascular: regular rate and rhythym, No JVD, No edema Respiratory: no respiratory distress, no rales or rhonchi, reduced air movement Gastrointestinal: normoactive bowel sounds, No tenderness, No ascites Skin: warm, normal color, No erythema Musculoskeletal: no joint effusions, pain with ROM, generalized weakness Neurologic: AAOx3 Psychiatric: interacting appropriately, not anxious, not encephalopathic, thought process linear ICD10 Worksheet Patient Problems: Problems Problem Status Onset Sacral insufficiency fracture Acute Pain management Acute Primary localized osteoarthritis of left hip Acute
--- NOTE | 2017-07-14 14:32 | PDMN ---
Medical Necessity Medical necessity: Pt meets IP criteria per MD; est los >2 mn for eval/tx of sacral insufficiency fxs & weakness; admit for supportive care, pain control, therapies & Ortho consult; hx recent L KD, severe spinal stenosis, HTN; per H& P & order 07/13/17
--- NOTE | 2017-07-14 15:27 | ASMTCMCOM ---
CM Note CM Note Notes: PT rec SNF, pt [facility] choice [facility], referral sent in Allscripts. Spoke savanah Campos at , she does not know yet if she will have a female bed, will review referral and let CM know. CM mentioned to pt a second choice may be needed if has no bed availability, SNF list provided. CM to follow. D/c plan of care: SNF Date Signed: 07/14/2017 03:27 PM Electronically Signed By:AKNDI Rodas
[2017-07-14] MEDS: DULoxetine 30 MG CAP PO SCH (15:31)
--- NOTE | 2017-07-14 16:51 | NEUSURGPN ---
Assessment/Plan: 81 yr old with sacral insufficiency fracture Please see full dictated consult when available Will eval if IR can perform sacroloplasty, surgery not indicated Fracture may heal with time, will be difficult with patients smoking history and pain level Patient is neurologically intact, unable to walk related to pain Patient was seen and examined by myself and Dr Bray at 1630 at the bedside Please call Neurosurgery with any questions/concerns Subjective: back pain Objective: PERRL EOMI 5/5 BUE, BLE Pain with straight leg raise bilaterally Sensation grossly intact to light touch BLE Neuro Check Frequency: per routine Urinary Catheter in Place: No - Physician Discussed Patient with : Norberto Patient Seen by Dr.: Thornton Neurosurgery Physical Exam - Vitals, I&O, Labs I and O 07/13/17 07/14/17 07/15/17 05:59 05:59 05:59 Intake Total 200 Output Total 575 Balance -375 Weight 71.668 kg Intake: Oral (ml) 200 Output: Urine (ml) 575 Bedpan 275 Incontinence 300 Other: Number of Voids Bedpan 1 Incontinence 1 Vital Signs Temp Pulse Resp BP Pulse Ox 36.4 C 66 16 143/65 H 92 07/14/17 15:39 07/14/17 15:39 07/14/17 15:39 07/14/17 15:39 07/14/17 15:39 ICD10 Worksheet Patient Problems: Problems Problem Status Onset Pain management Acute Sacral insufficiency fracture Acute Primary localized osteoarthritis of left hip Acute
--- NOTE | 2017-07-14 17:19 | ASMTCMCOM ---
CM Note CM Note Notes: Pt accepted at [facility], will d/c when medically stable. Date Signed: 07/14/2017 05:18 PM Electronically Signed By:KANDI Rodas
--- NOTE | 2017-07-14 18:27 | GCON ---
[f rep st] CONSULTATION ORTHOPEDIC CONSULTATION HISTORY: Patient is a 81-year-old female well-known to me. Previously underwent a left total hip arthroplasty a little over a month ago. Now is complaining of right-sided posterior pain, spine pain, back pain, sacral pain. Was seen and evaluated in the clinic by my partner, Dr. Sehehan and decision was made to send the patient to the emergency room for an urgent MRI and evaluation. She was seen there and found to have sacral insufficiency fractures. She denies any specific fall, denies any injuries, just states that she was sitting in a chair 8 days ago and then started having this pain. Also has a significant lumbar stenosis that is severe on the MRI. PAST MEDICAL HISTORY: Significant for smoker, osteoporosis, carotid artery disease, recent hip replacement. MEDICATIONS: Please see medication list. PHYSICAL EXAMINATION: VITAL SIGNS: Stable. GENERAL: Patient in no acute distress. Pleasant, cooperative with exam. She is tender to palpation about the sacrum. She has intact sensation. MRI is reviewed which shows a sacral insufficiency fracture, worse on the right than the left. ASSESSMENT AND PLAN: Patient is a 81-year-old female with sacral insufficiency fractures. Discussed risks and benefits of operative and nonoperative intervention with patient. Recommended nonoperative intervention. Patient can be weightbearing as tolerated with walker. I discussed what weightbearing as tolerated means that if it hurts, do not do it. Patient expressed understanding. She can follow up in the orthopedic clinic for her sacral fractures, pelvic ring disruption. At this time, I would recommend a neurosurgical consult to evaluate for her sever spinal stenosis. She has not had this treated recently, and I think this is contributing to some of the pain as she is having pain out of proportion to a sacral insufficiency fracture. Recommend pain control per the hospitalist. Patient will likely need placement of SNF as she is not extremely mobile at this point. PROCEDURE: Closed treatment of pelvic ring disruption. /[id number]/MODL MTDD
--- NOTE | 2017-07-14 20:33 | GCON ---
[f rep st] CONSULTATION CHIEF COMPLAINT: Back pain. HISTORY OF PRESENT ILLNESS: The patient is a 81-year-old female with a history of a fall 3 weeks ago . The patient states that she fell onto the right side of her body, striking her head on the door an d bruising her right shoulder, which she has a rotator cuff problem with. She denies any acute back pain at the time of the fall and denies any loss of consciousness at the time of fall. Patient descr ibes her current symptoms as low back pain near her sacrum with minimal pain that extends into her ri ght buttock. She feels her lower sacral back pain is much worse than her buttock pain. She notes th at she has had leg weakness that has been progressing since Thursday for approximately 3 days now. She relates this weakness to the severity of her pain when trying to ambulate. She denies any saddle an esthesia or any loss of bowel or bladder function. Patient underwent a lumbar MRI and we were consul justin for further evaluation. REVIEW OF SYSTEMS: A 10-point Review of Systems was obtained and negative aside from what was rafaela mccain in HPI. PAST MEDICAL HISTORY: 1. Carotid stenosis. 2. Depression. 3. Hypertension. MEDICATIONS: 1. Atenolol 50 mg p.o. daily. 2. Cymbalta total of 90 mg daily. 3. Glucosamine. 4. Potassium 20 mEq p.o. daily. 5. Ranitidine 150 mg p.o. daily. 6. Valsartan 320 mg p.o. daily. 7. Ritalin 10 mg p.o. b.i.d. 8. Acetaminophen 650 mg q.6 hours p.r.n. 9. Aspirin 81 mg p.o. b.i.d. 10. Flexeril 10 mg p.o. q.8 hours p.r.n. spasm. 11. Senokot as needed. 12. Oxycodone 5-10 mg p.o. q.3 hours p.r.n. pain. PAST SURGICAL HISTORY: 1. Left total hip replacement. 2. section. 3. Carpal tunnel. 4. Hysterectomy. SOCIAL HISTORY: Patient drinks 1 vodka and V8 juice per day. The patient smokes 10-12 cigarettes pe r day for 40 years. Patient denies any use of illicit drugs including marijuana. FAMILY HISTORY: Denies any family history of lumbar stenosis. LABORATORY DATA: White blood cell count is 10.42, hematocrit is 43, hemoglobin 14.8, platelets 325. Sodium 134, potassium 4.8, BUN 9, creatinine 0.5, glucose 109. 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 M oderately chronic anterior wedge compression deformity of L3. Bilateral insufficiency fracture of th e sacrum, more severe on the right than the left. PHYSICAL EXAMINATION: VITAL SIGNS: Blood pressure is 143/65, heart rate is 66, oxygen saturation is 92% on 3 L nasal cannula, respiratory rate is 16, temperature is 36.4 degrees Celsius. HEENT: Head is normocephalic and atraumatic. Pupils equal, round, react to light. EOMs intact. Full visual fie lds by confrontation. RESPIRATORY/CARDIAC: Deferred. ABDOMEN: Deferred. GENITOURINARY/RECTAL: D eferred. NEUROLOGIC: The patient is awake, alert, oriented to name, place, location, date, time, an d situation. Memory is intact to immediate past and current events. Speech: No aphasia or dysphoni a. Cranial nerves 2-12 are grossly intact. Motor: The patient has 5/5 strength in all muscle group s in bilateral upper and lower extremities to include deltoids, biceps, triceps, brachioradialis, wri st flexion, extensors, battery repairer, intrinsic fingers, iliopsoas, quadriceps, hamstrings, plantar flexion, d orsiflexion, EHL testing. Sensation is grossly intact to light touch throughout all dermatomal distr ibutions of bilateral lower extremities. The patient has a positive straight leg raise, more promine nt on the right than on the left side. Reflexes: Biceps, triceps, brachioradialis, knee jerk and an kle jerk are 2+ out of 4. Toes are downgoing bilaterally. Kennedy sign is negative. Babinski is n egative. No evidence of clonus. DISCUSSION AND DECISION-MAKING: The patient is a 81-year-old female who suffered a fall approximatel y 3 weeks ago, landing on her right side. The patient denied any acute onset of back pain at the pedro e of her fall. Denies any symptoms and radicular symptoms at the time. The patient has been experie ncing increasing weakness in her bilateral lower extremities, which she relates to pain with walking since Thursday. MRI of the lumbar spine shows stable known stenosis of the lumbar spine which is most prominent at L2-3 and L4-5. She also has a compression wedge deformity which appears in chronic natu re at L3. Patient also has bilateral insufficiency fracture of the sacrum, which is more severe on t he right than the left. Due to the severity and location of the patient's pain being in the very low right sacral region, we suspect that her pain generator is coming from her insufficiency sacral frac ture. We would like Interventional Radiology to assess the patient to see if she is a candidate for a sacroplasty procedure. If she is unable to undergo a sacroplasty procedure, treatment for this fra cture will include time and therapy and pain management. We discussed risk factors involving healing of the fracture due to her smoking history. We will await to see if IR is able to attempt a sacropl asty procedure. If the pain is not alleviated following sacroplasty, we may consider trying an epidu ral steroid injection at her levels of stenosis at L2-3 and L4-5. The patient is neurologically inta ct other than inability to walk, which she relates due to the severe pain she experiences in her sacr al region with ambulation. Thank you for this consultation. The patient was seen and examined by myself and Dr. Thornton at the patient's bedside on July 14, 2017 at 1630. /[id number]/MODL
[2017-07-14] MEDS: PSYLLIUM METAMUCIL 1 PKT PO SCH (20:38)
[2017-07-14] MEDS: PATCH REMOVAL 1 EA PATCH TD SCH (20:38)
[2017-07-14] MEDS: ONDANSETRON DISINTEGRATING 4 MG TAB PO PRN (21:09)
[2017-07-15] MEDS: oxyCODONE IR 5 MG TAB PO PRN ×3 (03:23→14:11)
--- NOTE | 2017-07-15 08:33 | NEUSURGPN ---
Assessment/Plan: 81 yr old with sacral insufficiency fracture and stable known lumbar stenosis -IR to eval if patient is candidate for sacroplasty -Fracture may heal with time, will be difficult with patients smoking history and pain level -Patient is neurologically intact aside from inability to walk r/t pain -Patient discussed with Dr Thornton Please call Neurosurgery with any questions/concerns Subjective: patient has continues right sacral pain, increased with movement Objective: PERRL AxO x3 5/5 BLE, BUE Sensation intact to light touch Neuro Check Frequency: per routine Urinary Catheter in Place: No - Physician Discussed Patient with : [facility] Neuro[facility] Physical Exam - Vitals, I&O, Labs I and O 07/14/17 07/15/17 07/16/17 05:59 05:59 05:59 Intake Total 200 800 Output Total 575 1100 Balance -375 -300 Weight 71.668 kg Intake: Oral (ml) 200 800 Output: Urine (ml) 575 1100 Bedpan 275 Bedside Commode 1100 Incontinence 300 Other: Number of Voids Bedpan 1 Bedside Commode 1 Incontinence 1 2 Vital Signs Temp Pulse Resp BP Pulse Ox 36.8 C 75 16 141/56 H 89 L 07/15/17 07:40 07/15/17 07:40 07/15/17 07:40 07/15/17 07:40 07/15/17 07:40 ICD10 Worksheet Patient Problems: Problems Problem Status Onset Pain management Acute Sacral insufficiency fracture Acute Primary localized osteoarthritis of left hip Acute
[2017-07-15] MEDS: CALCIUM CARB W/VIT D 500 MG TAB PO SCH ×2 (08:54→22:27)
[2017-07-15] MEDS: CHOLECALCIFEROL VIT D3 1,000 UNITS TAB PO SCH (08:55)
[2017-07-15] MEDS: DULoxetine 60 MG CAP PO SCH (08:55)
[2017-07-15] MEDS: FAMOTIDINE 20 MG TAB PO SCH ×2 (08:55→22:27)
[2017-07-15] MEDS: ASPIRIN EC 81 MG TAB PO SCH ×3 (08:55→22:27)
[2017-07-15] MEDS: ATENOLOL 50 MG TAB PO SCH (08:55)
[2017-07-15] MEDS: ENOXAPARIN 40 MG/0.4 ML SYR SC SCH (09:08)
[2017-07-15] MEDS: LIDOCAINE 5% 1 EA PATCH TD SCH (09:50)
[2017-07-15] MEDS: VALSARTAN 160 MG TAB PO SCH (09:55)
[2017-07-15] MEDS: POTASSIUM CL 20 MEQ TAB PO SCH (09:55)
[2017-07-15] MEDS: VITAMIN B COMPLEX 1 EA CAP/TAB PO SCH (09:55)
--- NOTE | 2017-07-15 13:38 | HOSPPROG ---
Hospitalist Progress Note Assessment/Plan: 81y female with c/o back pain. #Sacral fx D/W Dr Martinez, sacroplasty today Bilateral, cont supportive care lidoderm patch appreciate consult Dr Cohn #Severe spinal stenosis stable L3 wedge fx chronic appreciate Dr Claudio Campo #Weakness multiple issues cont PT/OT #Hx HTN stable meds #Recent hip fx cont PT/OT #Dispo [facility] SNF rehab PT/OT eval cont supportive care pain management Subjective: In a lot of pain today. No other issues. Objective: Vital Signs Temp Pulse Resp BP Pulse Ox 36.8 C 75 16 141/56 H 89 L 07/15/17 07:40 07/15/17 08:55 07/15/17 07:40 07/15/17 09:55 07/15/17 07:40 07/14/17 07/15/17 07/16/17 05:59 05:59 05:59 Intake Total 200 800 300 Output Total 575 1100 Balance -375 -300 300 - Physical Exam Constitutional: appears nourished, chronically ill appearing, uncomfortable Eyes: PERRL, anicteric sclera, EOMI Ears, Nose, Mouth, Throat: moist mucous membranes, hearing normal, ears appear normal Cardiovascular: regular rate and rhythym, No JVD, No edema Respiratory: no respiratory distress, no rales or rhonchi, reduced air movement Gastrointestinal: normoactive bowel sounds, No tenderness, No ascites Skin: warm, normal color, No erythema Musculoskeletal: no joint effusions, pain with ROM, generalized weakness Neurologic: AAOx3 Psychiatric: interacting appropriately, not anxious, not encephalopathic, thought process linear ICD10 Worksheet Patient Problems: Problems Problem Status Onset Sacral insufficiency fracture Acute Pain management Acute Primary localized osteoarthritis of left hip Acute
[2017-07-15] MEDS: DULoxetine 30 MG CAP PO SCH (14:11)
[2017-07-15] MEDS ORDERED: NS 1,000 ML IV ONE (14:33)
[2017-07-15] MEDS ORDERED: CLINDAMYCIN 900 MG/DEXTROSE 50 ML IV ONE (14:33)
[2017-07-15] MEDS ORDERED: DEXAMETHASONE 10 MG/ML VIAL IVP ONE (14:35)
[2017-07-15] MEDS ORDERED: DEXMEDETOMIDINE IN 0.9 % NACL 50 ML IV ONE (15:00)
[2017-07-15] MEDS ORDERED: DEXMEDETOMIDINE HCL 400 MCG in NS 100 ML IV SCH (15:00)
[2017-07-15] MEDS ORDERED: FLUMAZENIL 0.5 MG/5 ML MDV IVP PRN (15:21)
[2017-07-15] MEDS ORDERED: NALOXONE HCL 0.4 MG/ML INJ IVP PRN (15:21)
[2017-07-15] MEDS ORDERED: MIDAZOLAM 2 MG/2 ML VIAL IVP PRN (15:21)
[2017-07-15] MEDS ORDERED: fentaNYL 100 MCG/2 ML INJ IVP PRN (15:21)
[2017-07-15] MEDS ORDERED: NS 1,000 ML IV SCH (15:30)
[2017-07-15 16:05] LABS: PROTIME(PATIENT) 13.4 SEC (12.0-15.0)
[2017-07-15] MEDS ORDERED: BUPIVACAINE 0.25% 30 ML SDV ONE (16:12)
[2017-07-15] MEDS ORDERED: LIDOCAINE 1% 300 MG/30 ML SDV ONE (16:14)
[2017-07-15] MEDS ORDERED: BUPIVACAINE 0.5% 10 ML SDV ONE (16:15)
[2017-07-15] MEDS ORDERED: BUPIVACAINE 0.5% 30 ML SDV ONE (16:32)
--- NOTE | 2017-07-15 17:56 | PDRADPN ---
Radiology Procedure Note Date of Procedure: 07/15/17 Radiologist: Jt Resendiz Anesthesia: IV Sedation Pre-op Diagnosis: Insufficiency fracture sacrum Post-op Diagnosis: Same Indication: Bedbound by debilitating pain. Procedure: CT-guided vertebroplasty of the sacrum Finding(s): 10 ml cement left sacral wing. 6 ml cement right sacral wing. Inf/Abcess present in the surg proc area at time of surgery?: No EBL: Minimal Complications: None.
--- NOTE | 2017-07-15 17:57 | PDPROPOC ---
Sedation Plan of Care Sedation Plan of Care: vital signs stable, mental status noted, patient educated of risks, benefits, alternatives, patient can tolerate sedation ASA Classification: ASA 3 Planned drugs: fentanyl, midazolam, other (dexmetatomidine) Mallampati Score: Class 3 Mallampati Reference Image: Patient passed 3-3-2 rule?: Yes
[2017-07-15] MEDS: PSYLLIUM METAMUCIL 1 PKT PO SCH (22:27)
[2017-07-15] MEDS: PATCH REMOVAL 1 EA PATCH TD SCH (22:28)
[2017-07-16] MEDS: oxyCODONE IR 5 MG TAB PO PRN ×5 (05:17→21:10)
[2017-07-16] MEDS: ONDANSETRON DISINTEGRATING 4 MG TAB PO PRN (07:43)
--- NOTE | 2017-07-16 08:28 | HOSPPROG ---
Hospitalist Progress Note Assessment/Plan: Patient is a 81-year-old female with history of known lumbar stenosis. She recently had a left hip replacement done in June with Dr. Cohn. She had been doing well until she got up from a chair and developed sudden back pain. Today is my 1st encounter with the patient. Chart reviewed. #Sacral fx -status post vertebroplasty of the sacrum -continue Lidoderm patches #Severe spinal stenosis stable L3 wedge fx chronic appreciate Dr Claudio Campo #Weakness multiple issues cont PT/OT Will need a usp facility at discharge #Hx HTN stable meds #Recent hip fx cont PT/OT #Dispo: pending/ she is c/o ongoing sacral pain. Will see how she does w PT and OT. Will aim to dc to SNF tomorrow if stable. Subjective: Rubina is c/o pain in the sacral area. Objective: Vital Signs Temp Pulse Resp BP Pulse Ox 36.7 C 80 18 163/74 H 91 L 07/16/17 07:24 07/16/17 07:24 07/16/17 07:24 07/16/17 07:24 07/16/17 07:24 07/15/17 07/16/17 07/17/17 05:59 05:59 05:59 Intake Total 800 1503.6 Output Total 1100 700 Balance -300 803.6 PT Cancelled 07/15/17 14:53 INR Cancelled 07/15/17 14:53 - Physical Exam Constitutional: uncomfortable, No not in pain Eyes: PERRL Ears, Nose, Mouth, Throat: hearing normal Cardiovascular: regular rate and rhythym Respiratory: no respiratory distress, reduced air movement Skin: warm Neurologic: AAOx3 Psychiatric: interacting appropriately, anxious ICD10 Worksheet Patient Problems: Problems Problem Status Onset Pain management Acute Sacral insufficiency fracture Acute Primary localized osteoarthritis of left hip Acute
[2017-07-16] MEDS: VALSARTAN 160 MG TAB PO SCH (10:00)
[2017-07-16] MEDS: ATENOLOL 50 MG TAB PO SCH (10:00)
[2017-07-16] MEDS: DULoxetine 60 MG CAP PO SCH (10:01)
[2017-07-16] MEDS: SENNOSIDES/DOCUSATE SODIUM TAB PO PRN ×2 (10:01→21:08)
[2017-07-16] MEDS: CALCIUM CARB W/VIT D 500 MG TAB PO SCH ×2 (10:01→21:08)
[2017-07-16] MEDS: VITAMIN B COMPLEX 1 EA CAP/TAB PO SCH (10:01)
[2017-07-16] MEDS: FAMOTIDINE 20 MG TAB PO SCH ×2 (10:01→21:09)
[2017-07-16] MEDS: CYCLOBENZAPRINE 10 MG TAB PO PRN (10:02)
[2017-07-16] MEDS: LIDOCAINE 5% 1 EA PATCH TD SCH (10:02)
[2017-07-16] MEDS: POTASSIUM CL 20 MEQ TAB PO SCH (10:02)
[2017-07-16] MEDS: ASPIRIN EC 81 MG TAB PO SCH ×2 (10:02→21:08)
[2017-07-16] MEDS: CHOLECALCIFEROL VIT D3 1,000 UNITS TAB PO SCH (10:02)
--- NOTE | 2017-07-16 11:13 | ASMTCMCOM ---
CM Note CM Note Notes: Received call from Andres at [facility], pt is accepted for SNF. DC Plan: SNF ([facility]) Date Signed: 07/16/2017 11:12 AM Electronically Signed By:Sofiya De La Rosa RN
[2017-07-16] MEDS: ENOXAPARIN 40 MG/0.4 ML SYR SC SCH (13:12)
[2017-07-16] MEDS: DULoxetine 30 MG CAP PO SCH (15:40)
[2017-07-16] MEDS: PSYLLIUM METAMUCIL 1 PKT PO SCH (21:08)
[2017-07-16] MEDS: PATCH REMOVAL 1 EA PATCH TD SCH (22:23)
[2017-07-17] MEDS: oxyCODONE IR 5 MG TAB PO PRN ×2 (00:24→09:01)
[2017-07-17] MEDS: CYCLOBENZAPRINE 10 MG TAB PO PRN ×2 (00:24→09:01)
[2017-07-17 08:51] VITALS: BP 153/64; PULSE 64; RESP 16; TEMP 98; O2SAT 94
--- NOTE | 2017-07-17 09:44 | HOSPPROG ---
Hospitalist Progress Note Assessment/Plan: Patient is a 81-year-old female with history of known lumbar stenosis. She recently had a left hip replacement done in June with Dr. Cohn. She had been doing well until she got up from a chair and developed sudden back pain. #Sacral fx -status post vertebroplasty of the sacrum -continue Lidoderm patches -still having pain, but more mobile #Severe spinal stenosis stable L3 wedge fx chronic appreciate Dr Claudio Campo #Weakness multiple issues cont PT/OT Will need a group home facility at discharge #Hx HTN stable meds #Recent hip fx cont PT/OT #Dispo: dc to SNF Subjective: Saloni is still having pain in the sacral and low back area. Objective: Vital Signs Temp Pulse Resp BP Pulse Ox 36.6 C 64 16 153/64 H 94 07/17/17 08:00 07/17/17 08:00 07/17/17 08:00 07/17/17 08:00 07/17/17 08:00 07/16/17 07/17/17 07/18/17 05:59 05:59 05:59 Intake Total 1503.6 375 Output Total 700 Balance 803.6 375 PT Cancelled 07/15/17 14:53 INR Cancelled 07/15/17 14:53 - Physical Exam Constitutional: uncomfortable, No not in pain Eyes: PERRL Ears, Nose, Mouth, Throat: hearing normal Cardiovascular: regular rate and rhythym Respiratory: no respiratory distress Gastrointestinal: normoactive bowel sounds Skin: warm Neurologic: AAOx3 Psychiatric: interacting appropriately ICD10 Worksheet Patient Problems: Problems Problem Status Onset Pain management Acute Sacral insufficiency fracture Acute Primary localized osteoarthritis of left hip Acute
--- NOTE | 2017-07-17 09:52 | PDIAF ---
- Diagnosis Diagnosis: sacral insufficiency fx, recent left total hip athroplasty Code Status: Full Code - Medication Management Discharge Medications: Medications to Continue on Transfer Atenolol [Tenormin 50 mg (*)] 50 mg PO DAILY 03/12/17 [Last Taken 07/13/17] Calcium Carb W/Vit D [Calcium Carb W/Vit D 500/200 (*)] 500 mg PO BID 03/12/17 [ Last Taken 07/13/17 09:00] Cholecalciferol Vit D3 [Vitamin D3 (*)] 1,000 units PO DAILY 03/12/17 [Last Taken 07/13/17] DULoxetine [Cymbalta 30 MG (*)] 30 mg PO 1500 03/12/17 [Last Taken 07/12/17] DULoxetine [Cymbalta 60 MG (*)] 60 mg PO DAILY 03/12/17 [Last Taken 07/13/17] Glucosamine Sulfate [Glucosamine Sulfate 500 MG (*)] 500 mg PO DAILY 03/12/17 [ Last Taken 07/13/17] Herbals/Supplements -Info Only 1 ea PO DAILY 03/12/17 [Last Taken Unknown] Multivitamins [Multivitamin (*)] 1 each PO DAILY 03/12/17 [Last Taken 07/13/17] Brule-3 Fatty Acids [Fish Oil 1000 mg (*)] 1,000 mg PO BID 03/12/17 [Last Taken 07/13/17 09:00] Potassium Cl [Klor-Con 20 meq (*)] 20 meq PO DAILY 03/12/17 [Last Taken 07/13/17 ] Ranitidine HCl 150 mg PO BID 03/12/17 [Last Taken 07/13/17 09:00] Valsartan 320 mg PO DAILY 03/12/17 [Last Taken 07/13/17] Vitamin B Complex [Super B-50 Complex] 1 each PO DAILY 03/12/17 [Last Taken 02/20] methYLPHENIDATE HCL [Ritalin 10mg (*)] 10 mg PO 08,1500 03/12/17 [Last Taken 02/20 08:00] Aspirin EC [Aspirin EC 81 mg (*)] 81 mg PO BID tab 06/12/17 [Last Taken 09:00] Cyclobenzaprine [Flexeril 10 MG (*)] 10 mg PO Q8HRS PRN tab 06/12/17 [Last Taken 07/13/17 04:00] oxyCODONE IR [Oxycodone Ir (*)] 5 - 10 mg PO Q3HRS PRN tab 06/12/17 [Last Taken Unknown] Acetaminophen [Tylenol 325mg (*)] 650 mg PO Q6HRS PRN 07/13/17 [Last Taken 07/12] Calcium Polycarbophil [FIBERCON] 625 mg PO HS 07/13/17 [Last Taken Unknown] Sennosides/Docusate Sodium [Senokot-S] 1 - 2 tab PO BID PRN 07/13/17 [Last Taken Unknown] Lidocaine 5% [Lidoderm 5% Patch (*)] 2 ea TD DAILY patch 07/17/17 [Last Taken Unknown] Patch Removal 2 ea TD DAILY21 patch 07/17/17 [Last Taken Unknown] Discharge Medications: Refer to the Discharge Home Medication list for PRN reason. - Orders Services needed: Physical Therapy, Occupational Therapy Diet Recommendation: no restrictions on diet Diet Texture: Regular Texture Diet - Follow Up Care Current Providers and Referrals: Christiana Galarza MD [Primary Care Provider] - As per Instructions Matt Cohn MD [Medical Doctor] -
[2017-07-17] MEDS: ASPIRIN EC 81 MG TAB PO SCH (10:10)
[2017-07-17] MEDS: FAMOTIDINE 20 MG TAB PO SCH (10:11)
[2017-07-17] MEDS: ATENOLOL 50 MG TAB PO SCH (10:11)
[2017-07-17] MEDS: VITAMIN B COMPLEX 1 EA CAP/TAB PO SCH (10:12)
[2017-07-17] MEDS: DULoxetine 60 MG CAP PO SCH (10:13)
[2017-07-17] MEDS: CALCIUM CARB W/VIT D 500 MG TAB PO SCH (10:15)
[2017-07-17] MEDS: VALSARTAN 160 MG TAB PO SCH (10:38)
[2017-07-17] MEDS: POTASSIUM CL 20 MEQ TAB PO SCH (10:38)
[2017-07-17] MEDS: CHOLECALCIFEROL VIT D3 1,000 UNITS TAB PO SCH (10:39)
[2017-07-17] MEDS: ENOXAPARIN 40 MG/0.4 ML SYR SC SCH (10:39)
[2017-07-17] MEDS: LIDOCAINE 5% 1 EA PATCH TD SCH ×2 (10:39→10:47)
--- NOTE | 2017-07-17 10:42 | GDS ---
[f rep st] DISCHARGE SUMMARY DISCHARGE DIAGNOSES: 1. Sacral insufficiency fracture. 2. Severe spinal stenosis. 3. Weakness. 4. Hypertension. 5. Recent left total hip arthroplasty approximately a month ago. HISTORY: Briefly, the patient is a 81-year-old female with history of known lumbar stenosis. She re cently had a left hip replacement done in June with Dr. Cohn. She had been doing well until she got up from the chair and developed sudden back pain. It was noted that she had a sacral fractu re. She was seen and evaluated by Dr. Cohn and with Neurology. She had a sacroiliac joint CT a nd had a vertebroplasty of both sacral wings using CT guidance. She continues to have some pain. Ghazala burgess will further follow up with Dr. Claudio Campo in the outpatient setting. CONSULTATIONS: 1. Dr. Gerry Cohn. 2. Siomara Woodruff, nurse practitioner with neurosurgical services. 3. Dr. Jt Resendiz, interventional radiologist. HOSPITAL COURSE: 1. Sacral fracture. She is status post vertebroplasty of the sacrum. She has Lidoderm patches. Ghazala burgess is still having pain but is a bit more mobile than when I evaluated her yesterday. 2. Severe spinal stenosis, to follow up with Dr. Campo. She has an L3 wedge fracture that is chron ic. 3. Weakness due to multiple issues, including recent hip surgery, as well as a sacral fracture. 4. Hypertension. Blood pressure has overall been stable. 5. Recent left total hip arthroplasty. Overall, doing well with this. DISCHARGE CONDITION: Stable. Blood pressure is 153/64. Pulse is 64. Respiratory rate of 16. O2 s ats on 3 L are 94%. Temperature is 36.6 Celsius. DISCHARGE MEDICATIONS: Please see the EMR. DISCHARGE INSTRUCTIONS: 1. To continue slowly strengthening. 2. To follow up with Dr. Claudio Campo if her back pain should be ongoing. Greater than 30 minutes discharging and coordinating patient's care. /[id number]/MODL
--- NOTE | 2017-07-17 10:56 | PDIAF ---
- Diagnosis Diagnosis: sacral insufficiency fx, recent left total hip athroplasty Code Status: Full Code - Medication Management Discharge Medications: Medications to Continue on Transfer Atenolol [Tenormin 50 mg (*)] 50 mg PO DAILY 03/12/17 [Last Taken 07/13/17] Calcium Carb W/Vit D [Calcium Carb W/Vit D 500/200 (*)] 500 mg PO BID 03/12/17 [ Last Taken 07/13/17 09:00] Cholecalciferol Vit D3 [Vitamin D3 (*)] 1,000 units PO DAILY 03/12/17 [Last Taken 07/13/17] DULoxetine [Cymbalta 30 MG (*)] 30 mg PO 1500 03/12/17 [Last Taken 07/12/17] DULoxetine [Cymbalta 60 MG (*)] 60 mg PO DAILY 03/12/17 [Last Taken 07/13/17] Glucosamine Sulfate [Glucosamine Sulfate 500 MG (*)] 500 mg PO DAILY 03/12/17 [ Last Taken 07/13/17] Herbals/Supplements -Info Only 1 ea PO DAILY 03/12/17 [Last Taken Unknown] Multivitamins [Multivitamin (*)] 1 each PO DAILY 03/12/17 [Last Taken 07/13/17] Conrad-3 Fatty Acids [Fish Oil 1000 mg (*)] 1,000 mg PO BID 03/12/17 [Last Taken 07/13/17 09:00] Potassium Cl [Klor-Con 20 meq (*)] 20 meq PO DAILY 03/12/17 [Last Taken 07/13/17 ] Ranitidine HCl 150 mg PO BID 03/12/17 [Last Taken 07/13/17 09:00] Valsartan 320 mg PO DAILY 03/12/17 [Last Taken 07/13/17] Vitamin B Complex [Super B-50 Complex] 1 each PO DAILY 03/12/17 [Last Taken 02/20] methYLPHENIDATE HCL [Ritalin 10mg (*)] 10 mg PO 08,1500 03/12/17 [Last Taken 02/20 08:00] Aspirin EC [Aspirin EC 81 mg (*)] 81 mg PO BID tab 06/12/17 [Last Taken 09:00] Cyclobenzaprine [Flexeril 10 MG (*)] 10 mg PO Q8HRS PRN tab 06/12/17 [Last Taken 07/13/17 04:00] oxyCODONE IR [Oxycodone Ir (*)] 5 - 10 mg PO Q3HRS PRN tab 06/12/17 [Last Taken Unknown] Acetaminophen [Tylenol 325mg (*)] 650 mg PO Q6HRS PRN 07/13/17 [Last Taken 07/12] Calcium Polycarbophil [FIBERCON] 625 mg PO HS 07/13/17 [Last Taken Unknown] Sennosides/Docusate Sodium [Senokot-S] 1 - 2 tab PO BID PRN 07/13/17 [Last Taken Unknown] Diclofenac Sodium 1% [Voltaren Gel (*)] 4 gm TP QID gel 07/17/17 [Last Taken Unknown] Discharge Medications: Refer to the Discharge Home Medication list for PRN reason. - Orders Services needed: Physical Therapy, Occupational Therapy Diet Recommendation: no restrictions on diet Diet Texture: Regular Texture Diet - Follow Up Care Current Providers and Referrals: Matt Cohn MD [Medical Doctor] - Christiana Galarza MD [Primary Care Provider] - As per Instructions
[2017-07-17] MEDS ORDERED: DICLOFENAC SODIUM 1% 100 GM GEL TP SCH ×2 (11:00)
--- NOTE | 2017-07-17 17:39 | ASDISCHSUM ---
Discharge Information Plan Status:SNF Medically Cleared to Leave: Discharge Date:07/17/2017 01:40 PM CM D/C Disposition:Fpc Facility ADT D/C Disposition:Fpc Facility Projected Discharge Date:07/17/2017 11:00 AM Transportation at D/C:Wheelchair Van Discharge Delay Reason: Follow-Up Date:07/17/2017 11:00 AM Discharge Slot: Final Diagnosis: Placement Information Referral Type:*Retirement/SNF Referral ID:[id number] Provider Name:[facility] Address 1:[address] Address 2: City:[place] Selection Factors: State:[place] Patient Contact Information Contact Name:GOPI Relationship:Son Address: Home Phone: City:[place] Phone: State/Zip Code:[place] Email: Financial Information Financial Class: Primary Plan Desc:MEDICARE INPATIENT Primary Plan Number:[id number] Secondary Plan Desc:[employer]/MDR SUPPLEMENT Secondary Plan Number:[id number] Assessment Information [facility] CM Progress Note CM Note CM Note Notes: PT rec SNF, pt first choice is [facility], referral sent in [employer]. Spoke savanah Campos at , she does not know yet if she will have a female bed, will review referral and let CM know. CM mentioned to pt a second choice may be needed if has no bed availability, SNF list provided. CM to follow. D/c plan of care: SNF Date Signed: 07/14/2017 03:27 PM Electronically Signed By:KANDI Rodas [facility] CM Progress Note CM Note CM Note Notes: Pt accepted at [facility], will d/c when medically stable. Date Signed: 07/14/2017 05:18 PM Electronically Signed By:KANDI Rodas [facility] CM Progress Note CM Note CM Note Notes: Received call from Andres at [facility], pt is accepted for SNF. DC Plan: SNF ([facility]) Date Signed: 07/16/2017 11:12 AM Electronically Signed By:Sofiya De La Rosa RN Case Management Discharge Plan Note Case Management Discharge Discharge Order Complete? Answers: Yes Patient to Obtain Answers: Other Notes: [facility] Medications Transportation Arranged Answers: Other Notes: [facility] will Pick (Date 07/17/2017 01:00 PM & Time) Faxed Final Orders Answers: Yes Family Notified Answers: Yes Discharge Comments Notes: D/w [employer], final orders faxed. Andres at [facility] notified, RN to call report. CM arranged transport with [facility] at 1pm. Date Signed: 07/17/2017 11:21 AM Electronically Signed By:Sofiya De La Rosa RN Intervention Information Intervention Type:*IM-Signed Date of Service:07/17/2017 12:52 PM Patient Type:Inpatient Staff Member:Margy Knox Hours: Discipline: Severity: Comment:
== END 2017-07-17 13:40 | DRG 517 ==
LOC: F3N 17:41 → OBSVTOIN 18:43 → F3E 07-15 15:56
PROVIDERS: ADMIT Internal Medicine; ATTEND Internal Medicine
PROC: 0QU13JZ Supplement Sacrum with Synthetic Substitute, Percutaneous Approach (ICD-10-PCS; principal; 2017-07-13)
DX: M84.48XA Pathological fracture, other site, initial encounter for fracture (principal); M51.36 Other intervertebral disc degeneration, lumbar region; M47.816 Spondylosis without myelopathy or radiculopathy, lumbar region; K21.9 Gastro-esophageal reflux disease without esophagitis; I65.29 Occlusion and stenosis of unspecified carotid artery; I10 Essential (primary) hypertension; Z96.642 Presence of left artificial hip joint
CPT/HCPCS: 96374; 97116-GP; 97161-GP; 97165-GO; 97530-GP; 97535-GO; G8978-GP-CK; G8979-GP-CJ; G8984-GO-CL; G8985-GO-CJ; J1100; J1170; J1650; J2250; J2310; J2405; J3010

== ENCOUNTER 2017-08-25 14:28 | Inpatient (IN) | payer OTHER, MEDICARE ==
[2017-08-25] MEDS ORDERED: ONDANSETRON 4 MG/2 ML VIAL ONE (15:43)
[2017-08-25] MEDS ORDERED: ONDANSETRON 4 MG/2 ML VIAL IVP ONE (15:44)
[2017-08-25] MEDS ORDERED: NS 1,000 ML IV ONE (15:44)
[2017-08-25 16:42] LABS: PLATELET COUNT 439 10^3/uL (150-400)
--- NOTE | 2017-08-25 16:46 | EDPHY ---
H & P Time Seen by Provider: 08/25/17 15:42 HPI/ROS: Chief complaint. Back pain HPI. 81-year-old female presents emergency department with 2 day history of low back pain. It started after lifting the lid on a toilet tank. She strained the muscles interval low back. She has diffuse pain across her low back. No radiation to her legs. No bowel or bladder symptoms. No leg weakness. She describes as tightness and uncomfortable to move. Yesterday she took to Oxy code own tablets and then since then she has had left-sided abdominal pain left upper mid and lower object abdomen. It is described as sharp. She has had dry heaves but no diarrhea. Last bowel movement was 3 days ago. It hurts to twist and move. On June 10 she had a hip replacement. On July 11 she had a kyphoplasty of the lumbar spine. She has been in [facility] for 1 month for rehab and was discharged 1 week ago. She lives alone. ROS Constitutional. no fever/chills, no weakness Eyes. no problems with vision ENT. no sore throat, no nasal drainage Cardiovascular. no chest pain Respiratory. no shortness of breath, no cough Abdominal. Left side abdominal pain with nausea and vomiting but no diarrhea. Some constipation. . no problems urinating MS. Low back pain Skin. no rash Lymph. no swollen glands Neuro. no headache, no dizziness, no difficulty walking or with speech Past Medical/Surgical History: Past medical history seen for hypertension, depression, GERD, colitis, arthritis , back surgeries, hip replacement Social History: Single, daily smoker, no alcohol Smoking Status: Heavy smoker Physical Exam: General Appearance: Alert well-developed female mild distress vital signs are stable Eyes: Pupils equal and round no pallor or injection. ENT, Mouth: Mucous membranes are moist. Respiratory: There are no retractions, lungs are clear to auscultation. Cardiovascular: Regular rate and rhythm. Gastrointestinal: Abdomen is soft with left abdomen tenderness. Normal bowel sounds. No masses Neurological: Awake and alert, sensory and motor exams grossly normal. Skin: Warm and dry, no rashes. Musculoskeletal: Neck is supple nontender. Extremities symmetrical, full range of motion. Psychiatric: Patient is oriented X 3, there is no agitation. Constitutional: Initial Vital Signs Temperature (C) 36.7 C 08/25/17 14:40 Heart Rate 80 08/25/17 14:40 Respiratory Rate 18 08/25/17 14:40 O2 Sat (%) 93 08/25/17 14:40 O2 Delivery Mode Room Air Allergies/Adverse Reactions: Penicillins Allergy (Severe, Verified 06/10/17 10:21) Hives, itching, welts niacin [Niacin] Allergy (Intermediate, Verified 06/10/17 10:22) Itching Sulfa (Sulfonamide Antibiotics) Allergy (Intermediate, Verified 06/10/17 10:21) Itching Home Medications: Medication Instructions Recorded Atenolol [Tenormin 50 mg (*)] 50 mg PO DAILY 03/12/17 Calcium Carb W/Vit D [Calcium Carb 500 mg PO BID 03/12/17 W/Vit D 500/200 (*)] Cholecalciferol Vit D3 [Vitamin D3 1,000 units PO DAILY 03/12/17 (*)] DULoxetine [Cymbalta 30 MG (*)] 30 mg PO 1500 03/12/17 DULoxetine [Cymbalta 60 MG (*)] 60 mg PO DAILY 03/12/17 Glucosamine Sulfate [Glucosamine 500 mg PO DAILY 03/12/17 Sulfate 500 MG (*)] Herbals/Supplements -Info Only 1 ea PO DAILY 03/12/17 Multivitamins [Multivitamin (*)] 1 each PO DAILY 03/12/17 [place]-3 Fatty Acids [Fish Oil 1000 1,000 mg PO BID 03/12/17 mg (*)] Potassium Cl [Klor-Con 20 meq (*)] 20 meq PO DAILY 03/12/17 Ranitidine HCl 150 mg PO BID 03/12/17 Valsartan 320 mg PO DAILY 03/12/17 Vitamin B Complex [Super B-50 1 each PO DAILY 03/12/17 Complex] methYLPHENIDATE HCL [Ritalin 10mg 10 mg PO 08,1500 03/12/17 (*)] Aspirin EC [Aspirin EC 81 mg (*)] 81 mg PO BID tab 06/12/17 Cyclobenzaprine [Flexeril 10 MG 10 mg PO Q8HRS PRN tab 06/12/17 (*)] oxyCODONE IR [Oxycodone Ir (*)] 5 - 10 mg PO Q3HRS PRN tab 06/12/17 Acetaminophen [Tylenol 325mg (*)] 650 mg PO Q6HRS PRN 07/13/17 Calcium Polycarbophil [FIBERCON] 625 mg PO HS 07/13/17 Sennosides/Docusate Sodium 1 - 2 tab PO BID PRN 07/13/17 [Senokot-S] Diclofenac Sodium 1% [Voltaren Gel 4 gm TP QID gel 07/17/17 (*)] Medical Decision Making - Diagnostics Imaging Results: Imaging Impressions Abdomen CT 08/25/17 17:02 Impression: 1. No acute abnormality within the abdomen or pelvis. 2. Mild inferior compression deformity at L1, new since 07/13/2017. 3. Aortic aneurysm at the level of the diaphragmatic hiatus. 4. Ill-defined hypoattenuation in the lower pole of the left kidney is indeterminate and may represent a small underlying mass. Consider CT abdomen pelvis renal mass protocol to better characterize. Dr. Kdid discussed these findings by telephone with JIM COLE on 2017 at 18:30. CT abdomen with IV contrast reviewed by me and discussed with Dr. Timmons shows no acute abnormality within the abdomen. There is a 3.4 cm abdominal aortic aneurysm, severe atherosclerosis. No evidence for mesenteric ischemia a.m.. Ill-defined hypotension at the lower pole of the left kidney, chronic compression fractures of the back. New mild compression fracture of L1. Status post sacral plasty. Procedures: IV normal saline. Zofran for nausea. Morphine for pain ED Course/Re-evaluation: Re-evaluation 6:45 p.m.--patient is stable. I discussed findings lab and imaging studies with the patient her son. She complains of continued tightness in her back and feels that she cannot take care of herself at home. We discussed treatment plan and recommendation for admission. She expresses understanding and agreement I consulted and discussed the case with who agrees to the admission Differential Diagnosis: Patient is unable to care for herself at home. She has just finished 1 month stay in rehab for back pain. I do not find any acute abdominal findings. She has a new mild L1 compression fracture - Data Points Laboratory Results: Laboratory Results 08/25/17 15:40 08/25/17 15:40 08/25/17 08/25/17 08/25/17 17:20 15:40 15:40 WBC 8.84 10^3/uL 10^3/uL (3.80-9.50) RBC 5.53 10^6/uL H 10^6/uL (4.18-5.33) Hgb 15.9 g/dL g/dL (12.6-16.3) Hct 46.7 % % (38.0-47.0) MCV 84.4 fL fL (81.5-99.8) MCH 28.8 pg pg (27.9-34.1) MCHC 34.0 g/dL g/dL (32.4-36.7) RDW 13.9 % % (11.5-15.2) Plt Count 439 10^3/uL H 10^3/uL (150-400) Sodium 134 mEq/L L mEq/L (135-145) Potassium 3.9 mEq/L mEq/L (3.5-5.2) Chloride 98 mEq/L mEq/L (97-110) Carbon Dioxide 21 mEq/l L mEq/l (22-31) Anion Gap 15 mEq/L mEq/L (8-16) BUN 8 mg/dL mg/dL (7-23) Creatinine 0.5 mg/dL L mg/dL (0.6-1.0) Estimated GFR > 60 Glucose 145 mg/dL H mg/dL (70-100) Calcium 10.1 mg/dL mg/dL (8.5-10.4) Total Bilirubin 1.2 mg/dL mg/dL (0.1-1.4) AST 26 IU/L IU/L (14-46) ALT 36 IU/L IU/L (9-52) Alkaline Phosphatase 142 IU/L H IU/L (38-126) Total Protein 7.6 g/dL g/dL (6.3-8.2) Albumin 4.4 g/dL g/dL (3.5-5.0) Urine Color YELLOW Urine Appearance CLEAR Urine pH 7.0 (5.0-7.5) Ur Specific [place] 1.010 (1.002-1.030) Urine Protein NEGATIVE (NEGATIVE) Urine Ketones 1+ H (NEGATIVE) Urine Blood NEGATIVE (NEGATIVE) Urine Nitrate NEGATIVE (NEGATIVE) Urine Bilirubin NEGATIVE (NEGATIVE) Urine Urobilinogen NEGATIVE EU EU (0.2-1.0) Ur Leukocyte Esterase NEGATIVE (NEGATIVE) Urine RBC 1-3 /hpf /hpf (0-3) Urine WBC 1-3 /hpf /hpf (0-3) Ur Epithelial Cells Not Reported Urine Mucus TRACE /lpf /lpf (NONE-1+) Urine Glucose NEGATIVE (NEGATIVE) Medications Given: Discontinued Medications Sodium Chloride (Ns) 1,000 mls @ 0 mls/hr IV ONCE ONE PRN Reason: Wide Open Stop: 08/25/17 15:45 Last Admin: 08/25/17 15:45 Dose: 1,000 mls Morphine Sulfate (Morphine) 2 mg IVP EDNOW ONE Stop: 08/25/17 17:28 Last Admin: 08/25/17 17:29 Dose: 2 mg Ondansetron HCl (Zofran) 4 mg IVP EDNOW ONE Stop: 08/25/17 15:45 Last Admin: 08/25/17 15:45 Dose: 4 mg Departure - Departure Disposition: [facility] Inpatient Acute Clinical Impression: Compression fracture of L1 lumbar vertebra Qualifiers: Encounter type: initial encounter Fracture type: closed Qualified Code(s): S32.010A - Wedge compression fracture of first lumbar vertebra, initial encounter for closed fracture Condition: Fair Referrals: Christiana Galarza MD [Primary Care Provider] - As per Instructions
[2017-08-25] MEDS ORDERED: IOPAMIDOL (ISOVUE-300) 100 ML BTL ONE (17:10)
[2017-08-25] MEDS ORDERED: HYDROmorphONE/DILAUDID 1 MG/ML INJ IVP PRN (22:40)
[2017-08-25] MEDS ORDERED: ACETAMINOPHEN 325 MG TAB PO PRN (22:40)
[2017-08-25] MEDS ORDERED: ONDANSETRON 4 MG/2 ML VIAL IVP PRN (22:40)
--- NOTE | 2017-08-25 23:27 | GHP ---
[f rep st] HISTORY AND PHYSICAL DATE OF ADMISSION: 08/25/2017 CHIEF COMPLAINT: Low back pain. HISTORY OF PRESENT ILLNESS: The patient is a 81-year-old female, just discharged 1 month ago after s uffering sacral insufficiency fracture for which she underwent vertebroplasty. She was discharged to [facility] and had recently returned home. Upon leaving [facility], she was doing great w ith good pain control and great ambulation. Just 1 month prior to her sacral insufficiency fracture, she had a total hip arthroplasty with Dr. Cohn. Yesterday morning, her toilet broke and she lifted the heavy porcelain lid off the back to try to fix the chain and immediately, she developed severe pain across her whole lower back. It felt like all her muscles were tightening and she heard a crunching sound. She tried to nurse this at home with ox ycodone and ibuprofen, but pain was too severe. She also took a muscle relaxant she had in the house and that upset her stomach. PAST MEDICAL HISTORY: 1. Severe lumbar spinal stenosis. 2. Vertebral compression fractures. 3. Hypertension. 4. GERD. 5. Colitis. 6. Carotid stenosis. PAST SURGICAL HISTORY: Hip surgery. MEDICATIONS: Please see computer record for full detailed list. ALLERGIES: Penicillin, sulfa, and niacin. SOCIAL HISTORY: She smokes half a pack per day. She drinks 1-1/2 alcoholic beverages per day. She lives alone. Her son lives in [place]. REVIEW OF SYSTEMS: A complete review of systems obtained. Review of systems negative regarding cons titutional, HEENT, GI, pulmonary, cardiovascular, , hematology, skin, musculoskeletal, endocrine, p sych, except for positives and negatives as in HPI. FAMILY HISTORY: Reviewed and noncontributory to presenting complaint. PHYSICAL EXAMINATION: GENERAL: Well-developed, well-nourished female, in no distress. VITAL SIGNS: Temperature 37.2, pulse 73, blood pressure 237/92, saturating 95% on room air. HEENT: Normal conj unctivae. Pupils equal, round, and react to light. Normal ears and nose. Hearing intact. Normal t eeth. Oropharynx moist. NECK: Trachea midline. No thyromegaly. CHEST: Normal respiratory effort . LUNGS: Clear to auscultation bilaterally. CARDIOVASCULAR: Regular rhythm. No murmur. No lower extremity edema. ABDOMEN: Soft, nontender. No hepatosplenomegaly. SKIN: Warm, dry, intact, with out rash. MUSCULOSKELETAL: No cyanosis or clubbing. Strength 5/5 upper and lower extremities. ABDIRAHMAN ROLOGIC: Cranial nerves intact. Normal sensation to light touch. PSYCHIATRIC: Alert and oriented x3. Normal affect. Normal judgment and insight. Normal memory. LABORATORY DATA: White count 8.82, hematocrit 46.7, platelets 439. Sodium 134, potassium 3.9, chlor sumi 98, bicarb 21, BUN 8, creatinine 0.5, glucose 145. LFTs are negative. Urinalysis is negative. CT scan of the abdomen and pelvis shows a possible renal mass, new L1 compression fracture. Abdomina l aortic aneurysm 3.6 cm. This case was discussed with Dr. Antonio Meza, emergency room physician, regarding emergency room cou rse. ASSESSMENT AND PLAN: 1. New acute L1 compression fracture. This appears to be very mild and may do fine with just conser vative treatment. Could consider neurosurgery consult and repeat MRI if she has ongoing severe pain. There may be an element of muscle spasms. Will try an alternative muscle relaxant as well to see h ow she tolerates it. 2. Sacral insufficiency fracture, status post recent vertebroplasty. She was doing very well from t his standpoint. 3. Severe lumbar spinal stenosis. This is a baseline issue for her. 4. Hypertension. Very elevated blood pressure on presentation. It has now improved with the most r ecent systolic blood pressure reading of 150. Will continue her home medications with additional IV hydralazine as needed for extreme blood pressure elevations. 5. Possible renal mass. She will need followup imaging as an outpatient. 6. Abdominal aortic aneurysm 3.6 cm. This also should be followed as an outpatient. CODE STATUS: DNR. ADMISSION STATUS: Will admit to observation and reevaluate tomorrow for ongoing need for hospitaliza tion. DVT PROPHYLAXIS: She is high risk. Will place her on subcu Lovenox. /[id number]/MODL
[2017-08-26] MEDS: hydrALAZINE 20 MG/ML VIAL IVP PRN (00:38)
[2017-08-26] MEDS: oxyCODONE IR 5 MG TAB PO PRN ×4 (00:48→20:30)
[2017-08-26] MEDS: IBUPROFEN 600 MG TAB PO PRN ×2 (00:49→20:29)
[2017-08-26] MEDS ORDERED: VALSARTAN 320 MG PO SCH (09:00)
[2017-08-26] MEDS ORDERED: NON-FORMULARY NEW DRUG (Ranitidine Hcl [Ranitidine Hcl] 150 MG) PO SCH (09:00)
[2017-08-26] MEDS: ENOXAPARIN 40 MG/0.4 ML SYR SC SCH (09:07)
[2017-08-26] MEDS: ASPIRIN EC 81 MG TAB PO SCH ×2 (09:07→20:24)
[2017-08-26] MEDS: VALSARTAN 160 MG TAB PO SCH (09:07)
[2017-08-26] MEDS: ATENOLOL 50 MG TAB PO SCH (09:08)
[2017-08-26] MEDS: CHOLECALCIFEROL VIT D3 1,000 UNITS TAB PO SCH (09:08)
[2017-08-26] MEDS: FAMOTIDINE 20 MG TAB PO SCH ×2 (09:08→20:24)
[2017-08-26] MEDS: CALCIUM CARB W/VIT D 500 MG TAB PO SCH ×2 (09:08→20:24)
[2017-08-26] MEDS: DULoxetine 60 MG CAP PO SCH (09:08)
--- NOTE | 2017-08-26 11:54 | HOSPPROG ---
Hospitalist Progress Note Assessment/Plan: Patient is a 81 y/o female who was dc recently for a sacral insufficiency fracture, she underwent a vertebroplasty. She went to for rehab. Returned home and was doing well until she lifted the porcelain lid off her toilet and developed sever pain across the lower back area. Today is my first encounter w the patient, chart reviewed. *L1 compression fx -evaluated by PT and OT -recommendation is SNF -she had a Dexa scan recently per patient that showed improvement *recent sacral insufficiency fx -s/p vertebroplasty *recent total hip arthroplasty *Severe lumbar spinal stenosis *HTN -125/63/ well managed *Possible renal mass -reviewed this finding w her, she will need f/u once back issues are evaluated *AAA aneurysm at 3.6 cm -needs OP monitoring -her brother has had 3 surgeries for this -she is aware this needs monitoring *Plan: will ask neurosurgery to see, she has significant pain from walking. Brace vs kypho? She will require another midnight stay due to the inability to being able to walk.Will check a Vitamin D level Subjective: Benjamin said she isn't in pain with her back until she walks. Doesn't feel she can go home and care for herself. Objective: Vital Signs Temp Pulse Resp BP Pulse Ox 36.9 C 68 16 125/63 H 90 L 08/26/17 11:38 08/26/17 11:38 08/26/17 11:38 08/26/17 11:38 08/26/17 11:38 08/25/17 08/26/17 08/27/17 05:59 05:59 05:59 Intake Total 500 300 Balance 500 300 - Physical Exam Constitutional: uncomfortable Eyes: PERRL Ears, Nose, Mouth, Throat: hearing normal Cardiovascular: regular rate and rhythym Respiratory: no respiratory distress Skin: warm Musculoskeletal: generalized weakness Neurologic: AAOx3 Psychiatric: interacting appropriately ICD10 Worksheet Patient Problems: Problems Problem Status Onset Compression fracture of L1 lumbar vertebra Acute Pain management Acute Primary localized osteoarthritis of left hip Acute Sacral insufficiency fracture Acute
--- NOTE | 2017-08-26 12:09 | ASMTCMCOM ---
CM Note CM Note Notes: Patient admitted with acute L1 compression fracture. Fortunately it's mild and may be able to be managed conservatively if patient is not in too much pain. 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 She was at [facility] for 30 days recovering from a sacral insufficiency fracture sustained in July and had been at home for one week prior to this current injury. I sent a referral to [facility] in the case that SNF is recommended. When I went to talk to patient about this, she was sleeping, and the PT who worked with her reported that she was very fatigued during their session. I also called and left a message for her son Wallace. Case Management will follow. Date Signed: 08/26/2017 12:08 PM Electronically Signed By:Lianet Youngblood RN
[2017-08-26] MEDS: DULoxetine 30 MG CAP PO SCH (14:03)
--- NOTE | 2017-08-26 15:03 | NEUSURGPN ---
Assessment/Plan: Assessment: 81 yr old with history of sacroplasty with mild L1 compression fx Plan: -Please see full dictated consult when available for details -Will get MRI lumbar and pelvis to further assess known lumbar stenosis and eval sacrum -Patients pain is located in her lower left back/sacrum region, is not tender to palp over L1 region -Will eval MRI's when complete to determine age of fracture if bracing is indicated -Dr Campo will be by to see patient as well later today Please call neurosurgery with any questions/concerns Subjective: Left lower back pain near her tailbone Objective: AxO x3 PERRLA EOMI CN 2-12 grossly intact 5/5 BUE, BLE Sensation intact to light touch BLE Not tender to palp over lumbar region Neuro Check Frequency: per routine Urinary Catheter in Place: No - Physician Discussed Patient with .: Alber Patient Seen by : Alber Neurosurgery Physical Exam - Vitals, I&O, Labs I and O 08/25/17 08/26/17 08/27/17 05:59 05:59 05:59 Intake Total 500 300 Balance 500 300 Weight 68.039 kg Intake: Oral (ml) 500 300 Vital Signs Temp Pulse Resp BP Pulse Ox 36.9 C 68 16 125/63 H 90 L 08/26/17 11:38 08/26/17 11:38 08/26/17 11:38 08/26/17 11:38 08/26/17 11:38 ICD10 Worksheet Patient Problems: Problems Problem Status Onset Compression fracture of L1 lumbar vertebra Acute Pain management Acute Primary localized osteoarthritis of left hip Acute Sacral insufficiency fracture Acute
--- NOTE | 2017-08-26 15:46 | PDMN ---
Medical Necessity Medical necessity: Change to IP, as of 08/26/17, per TRANSITION SPECIALIST; los >2 mn for ongoing management of L1 compression fx w/inability to walk; admit for further workup/ monitoring, Neurosurgery consult & therapies; comorbid advanced age, recent sacral insufficiency fx, recent KD, severe lumbar spinal stenosis, htn, AAA aneurysm & possible renal mass; per progress note & order 08/26/17
--- NOTE | 2017-08-26 16:41 | ASMTCMCOM ---
CM Note CM Note Notes: Patient's son Wallace returned my call. He is very frustrated and overwhelmed by his mother's situation of late, says he is an only child, also unmarried and with no children, so he is dealing with everything on his own. He feels that his mother is in a circular pattern of injury and recovery and that she "overdoes" it at home. We touched on the topics of SNF rehab, Assisted Living, and extra help at home. He doesn't seem clear on which would be best for patient, but he does want to discuss options with her. I mentioned that the hospital would likely recommend SNF for the short term but that we could provide resources on senior care options as well. Patient's son also said that no one had contacted him since her admission, so I asked patient's RN Libra to please call son. Date Signed: 08/26/2017 04:40 PM Electronically Signed By:Lianet Youngblood RN
--- NOTE | 2017-08-26 17:06 | GCON ---
[f rep st] CONSULTATION DATE OF CONSULTATION: 08/26/2017 CHIEF COMPLAINT: Left lower back pain and L1 compression fracture. HISTORY OF PRESENT ILLNESS: Patient is a 81-year-old female with a history of a fall in the 1st part of the year. She suffered a sacral insufficiency fracture. Patient underwent a sacroplasty with Interventional Radiology at [facility] on July 15, 2017, and had been in a rehab facility for 33 days. Patient was discharged home on August 16, 2017, where she is receiving home health care, including physical and occupational therapy. On Thursday, August 24, 2017, patient was lifting the lid off the back of her toilet to release the chain that was caught inside. She was bending to lift the lid and experienced severe back pain at that time. Patient came to the emergency department yesterday for her back pain and was found to have a mild L1 compression fracture via CT. Patient describes her symptoms as left lower back pain near her sacrum. She does not have any tenderness over the area of L1. She denies any radicular symptoms into her legs at this time. Patient does have known lumbar stenosis but is found to be a poor candidate for lumbar fusion due to her smoking history. Patient denies any weakness in her lower extremities and denies any difficulties with her bowel and bladder. Patient denies any saddle anesthesia. REVIEW OF SYSTEMS: A 10-point review of systems is obtained and negative aside from what was mentioned in the HPI. PAST MEDICAL HISTORY: 1. Carotid stenosis. 2. Depression. 3. Hypertension. MEDICATIONS: 1. Atenolol 50 mg p.o. daily. 2. Cymbalta total of 90 mg daily. 3. Glucosamine. 4. Potassium 20 mEq daily. 5. Ranitidine 150 mg p.o. daily. 6. Valsartan. 7. Ritalin. 8. Acetaminophen p.r.n. 9. Aspirin 81 mg twice daily. 10. Flexeril as needed. 11. Senokot as needed. 12. Oxycodone 5-10 mg as needed. PAST SURGICAL HISTORY: 1. Left total hip replacement. 2. section. 3. Carpal tunnel. 4. Hysterectomy. 5. Sacroplasty. SOCIAL HISTORY: Patient drinks 1 vodka and V8 juice per day. Patient smokes 8- 12 cigarettes per day for the last 40 years. Patient denies any illicit drug use, including marijuana. FAMILY HISTORY: Patient denies any family history of lumbar stenosis. ALLERGIES: Penicillin, niacin, and sulfa. LABORATORY DATA: White blood cell count is 8.84, hemoglobin 15.9, hematocrit 46.7, platelets 439. Sodium 134, potassium 3.9, BUN is 8, creatinine 0.5, glucose is 145. DIAGNOSTICS: CT of the abdomen performed with contrast on August 25, 2017, demonstrates mild anterior compression deformity of L1, which is new since previous imaging on July 13, 2017, aortic aneurysm at the level of the diaphragmatic hiatus, and a mass on the left kidney. ASSESSMENT AND PLAN: Patient is a 81-year-old female with a history of a sacral insufficiency fracture and underwent a sacroplasty on July 15, 2017, with Dr. Resendiz at [facility]. Patient was at [facility] for 33 days and discharged on August 16, 2017, to home where she has been receiving home health care. On Thursday, August 24, 2017, patient was lifting the toilet lid and experienced severe pain in her lower back. Patient describes her pain in the lower left sacral region. Patient does not have any tenderness to palpation over the lumbar region, specifically over L1, where she is found to have a new mild compression fracture. Patient does not have any radicular symptoms. We will request an MRI of the lumbar to further evaluate the newly found L1 compression fracture and any progression of her known stenosis. We also requested MRI of the pelvis, to include the sacrum, to evaluate her previous sacroplasty. Pending the results of the MRI, we will determine if bracing versus a kyphoplasty would be indicated in the presence of her new L1 compression fracture. It is our suspicion her pain is not arising from this L1 fracture and may be coming from another source. Currently, the patient would be a poor surgical candidate for any lumbar surgery which would likely require fusion due to her smoking status and comorbidities. Patient has an incidental finding of aortic aneurysm, as well as a mass on her left kidney, and would require medical clearance prior to any intervention. Thank you for consulting on this patient. We look forward to evaluating the MRI results once these are complete to help formulate a plan of care. Patient was seen and examined in the patient room today, August 26, 2017, at approximately 1430. Dr Campo will see patient in the morning, she was in MRI when he stopped by today. Please call Neurosurgery with any questions or concerns. /[id number]/MODL MTDD
[2017-08-26] MEDS: METHOCARBAMOL 750 MG TAB PO PRN (17:51)
[2017-08-26] MEDS ORDERED: HYDROmorphone HCL/NS 0.5 MG/ML SYR IVP PRN (20:07)
[2017-08-26] MEDS: ATORVASTATIN CALCIUM 20 MG TAB PO SCH (20:24)
[2017-08-26] MEDS: SENNOSIDES 1 TAB PO SCH (20:49)
[2017-08-26] MEDS: PSYLLIUM METAMUCIL 1 PKT PO SCH (20:51)
[2017-08-26] MEDS ORDERED: NON-FORMULARY NEW DRUG (Calcium Polycarbophil [Fibercon] 625 MG) PO SCH ×2 (21:00)
[2017-08-26] MEDS ORDERED: PSYLLIUM METAMUCIL 1 PKT PO SCH (21:00)
--- NOTE | 2017-08-27 08:57 | HOSPPROG ---
Hospitalist Progress Note Assessment/Plan: Patient is a 81 y/o female who was dc recently for a sacral insufficiency fracture, she underwent a vertebroplasty. She went to for rehab. Returned home and was doing well until she lifted the porcelain lid off her toilet and developed sever pain across the lower back area. 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 Spoke w CM to see if she could go to SNF soon. Trial of Lidoderm patches and Voltaren cream on back Subjective: Benjamin isn't c/o pain during my evaluation, concerned about her disposition. Objective: Vital Signs Temp Pulse Resp BP Pulse Ox 36.4 C 63 16 137/63 H 95 08/27/17 07:38 08/27/17 07:38 08/27/17 07:38 08/27/17 07:38 08/27/17 07:38 08/26/17 08/27/17 08/28/17 05:59 05:59 05:59 Intake Total 1800 Balance 1800 - Physical Exam Constitutional: appears nourished, uncomfortable Eyes: PERRL Ears, Nose, Mouth, Throat: hearing normal Cardiovascular: regular rate and rhythym Respiratory: no respiratory distress Skin: warm Musculoskeletal: generalized weakness Neurologic: AAOx3 Psychiatric: interacting appropriately ICD10 Worksheet Patient Problems: Problems Problem Status Onset Compression fracture of L1 lumbar vertebra Acute Pain management Acute Primary localized osteoarthritis of left hip Acute Sacral insufficiency fracture Acute
--- NOTE | 2017-08-27 09:14 | SOAPPROG ---
SOAP Progress Note Assessment/Plan: Assessment: 81 yo F with left sacral/buttock pain likely from lumbar stenosis at L2/3, L3/4, L4/5, No acute fracture seen on MRI Plan: neuro: stable, no acute fracture on MRI so she will not need bracing. Left hip/ buttock pain is likely from multilevel lumbar stenosis at L2/3 L3/4, L4/5. She has undergone epidural injections in the past with no improvement. We discussed having her try a medrol dose pack. continue PT/OT will follow PT/OT please call with neuro changes discussed with Dr Campo 08/27/17 09:11 Subjective: continued left hip/buttock pain. no leg pain, no weakness, no low back pain Objective: Vital Signs Temp Pulse Resp BP Pulse Ox 36.4 C 63 16 137/63 H 95 08/27/17 07:38 08/27/17 07:38 08/27/17 07:38 08/27/17 07:38 08/27/17 07:38 08/26/17 08/27/17 08/28/17 05:59 05:59 05:59 Intake Total 1800 Balance 1800 AAOx4, + FC PERRL, EOMI, no facial droop 5/5 + light touch ICD10 Worksheet Patient Problems: Problems Problem Status Onset Compression fracture of L1 lumbar vertebra Acute Pain management Acute Primary localized osteoarthritis of left hip Acute Sacral insufficiency fracture Acute
[2017-08-27] MEDS: CHOLECALCIFEROL VIT D3 1,000 UNITS TAB PO SCH (09:28)
[2017-08-27] MEDS: ENOXAPARIN 40 MG/0.4 ML SYR SC SCH (09:28)
[2017-08-27] MEDS: ASPIRIN EC 81 MG TAB PO SCH ×2 (09:29→20:59)
[2017-08-27] MEDS: VALSARTAN 160 MG TAB PO SCH (09:29)
[2017-08-27] MEDS: METHOCARBAMOL 750 MG TAB PO PRN ×2 (09:29→17:28)
[2017-08-27] MEDS: FAMOTIDINE 20 MG TAB PO SCH ×2 (09:29→20:59)
[2017-08-27] MEDS: ATENOLOL 50 MG TAB PO SCH (09:29)
[2017-08-27] MEDS: SENNOSIDES 1 TAB PO SCH ×2 (09:29→20:58)
[2017-08-27] MEDS: DULoxetine 60 MG CAP PO SCH (09:30)
[2017-08-27] MEDS: oxyCODONE IR 5 MG TAB PO PRN ×2 (10:36→20:59)
[2017-08-27] MEDS: CALCIUM CARB W/VIT D 500 MG TAB PO SCH ×2 (11:01→20:58)
--- NOTE | 2017-08-27 15:12 | WOCRNPDOC ---
DENIS Advanced Assessment Note - Skin Integrity Problem, Advanced Assess Coccyx Pressure Injury Dressing Type: Open to Air [place] Wound Tissue: Erythema [place] Wound Swelling: None Wound Bed Color: [place] Wound Edges: Well Defined Site Measurement - Head-to-Toe Length X Width X Depth (cm): 0.6x0.3x0.1 Pressure Injury Stage: Stage 2 Pressure Injury Present on Admit: Yes Skin Integrity Problem Comment: Patient standing in bathroom with assist of CALI Blandon. Patient was able to identify location of wound and informed me that she developed a "bed sore" while staying at a care facility recently. Patient states that "it's been there for a while". Partial thickness wound identified over coccyx. Will initiate pressure relieving measures. Wound care will follow up next week.
--- NOTE | 2017-08-27 16:16 | ASMTCMCOM ---
CM Note CM Note Notes: Pt does not need 3 midnight stay because she has been at [facility] within last 30 days. FM will not know until tomorrow if they will have a bed for pt. CM to follow. Date Signed: 08/27/2017 04:15 PM Electronically Signed By:KANDI Rodas
[2017-08-27] MEDS: DICLOFENAC SODIUM 1% 100 GM GEL TP SCH ×2 (16:29→16:30)
[2017-08-27] MEDS: traMADol 50 MG TAB PO PRN (17:27)
[2017-08-27] MEDS: DULoxetine 30 MG CAP PO SCH (17:27)
[2017-08-27] MEDS: LIDOCAINE 4%/MENTHOL 1% PATCH TD SCH (17:28)
[2017-08-27] MEDS: PSYLLIUM METAMUCIL 1 PKT PO SCH (20:57)
[2017-08-27] MEDS: ATORVASTATIN CALCIUM 20 MG TAB PO SCH (20:58)
[2017-08-28] MEDS: DICLOFENAC SODIUM 1% 100 GM GEL TP SCH ×5 (02:04→21:05)
[2017-08-28] MEDS: PATCH REMOVAL 1 EA PATCH TD SCH ×2 (02:04→21:06)
--- NOTE | 2017-08-28 08:15 | NEUSURGPN ---
Assessment/Plan: Assessment: 81 yo F with left sacral/buttock pain likely from lumbar stenosis at L2/3, L3/4, L4/5, No acute fracture seen on MRI Plan: -neuro: stable, no acute fracture on MRI so she will not need bracing. Left hip /buttock pain is likely from multilevel lumbar stenosis at L2/3 L3/4, L4/5. She has undergone epidural injections in the past with no improvement. We discussed having her try a medrol dose pack yesterday-started -ordered a caudal injection with IR to see if this can help her -continue PT/OT -will continue to follow -PT/OT -please call with neuro changes -discussed with Dr Campo Subjective: Awake and alert. NAD. Eating/drinking and voiding. No f/c/n/v/d. No yepez/neck/ chest/abd or gu complaints. Objective: AAOx4, + FC PERRL, EOMI, no facial droop 5/5 + light touch Neuro Check Frequency: per routine Urinary Catheter in Place: No - Physician Discussed Patient with : Alber Patient Seen by : Alber Neurosurgery Physical Exam - Vitals, I&O, Labs I and O 08/27/17 08/28/17 08/29/17 05:59 05:59 05:59 Intake Total 1800 900 Output Total 500 Balance 1800 400 Intake: Oral (ml) 1800 900 Output: Urine (ml) 500 Toilet 500 Other: Intake Quantity Yes Sufficient Number of Voids Toilet 3 1 Number of Stools Toilet 1 Vital Signs Temp Pulse Resp BP Pulse Ox 37.1 C 58 L 18 135/46 H 94 08/28/17 00:00 08/28/17 00:00 08/28/17 00:00 08/28/17 00:00 08/28/17 00:00 ICD10 Worksheet Patient Problems: Problems Problem Status Onset Compression fracture of L1 lumbar vertebra Acute Pain management Acute Primary localized osteoarthritis of left hip Acute Sacral insufficiency fracture Acute
[2017-08-28] MEDS: ENOXAPARIN 40 MG/0.4 ML SYR SC SCH (09:17)
[2017-08-28] MEDS: LIDOCAINE 4%/MENTHOL 1% PATCH TD SCH (09:17)
[2017-08-28] MEDS: CALCIUM CARB W/VIT D 500 MG TAB PO SCH ×2 (09:17→21:00)
[2017-08-28] MEDS: ASPIRIN EC 81 MG TAB PO SCH ×2 (09:18→20:59)
[2017-08-28] MEDS: methylPREDNISolone 4 MG TAB PO SCH ×4 (09:18→23:24)
[2017-08-28] MEDS: VALSARTAN 160 MG TAB PO SCH (09:18)
[2017-08-28] MEDS: ATENOLOL 50 MG TAB PO SCH (09:19)
[2017-08-28] MEDS: DULoxetine 60 MG CAP PO SCH (09:20)
[2017-08-28] MEDS: SENNOSIDES 1 TAB PO SCH ×2 (09:20→21:00)
[2017-08-28] MEDS: CHOLECALCIFEROL VIT D3 1,000 UNITS TAB PO SCH (09:20)
[2017-08-28] MEDS: FAMOTIDINE 20 MG TAB PO SCH ×2 (09:21→20:59)
[2017-08-28] MEDS: oxyCODONE IR 5 MG TAB PO PRN ×2 (09:27→12:53)
--- NOTE | 2017-08-28 12:06 | HOSPPROG ---
Hospitalist Progress Note Assessment/Plan: Patient is a 81 y/o female who was dc recently for a sacral insufficiency fracture, she underwent a vertebroplasty. She went to for rehab. Returned home and was doing well until she lifted the porcelain lid off her toilet and developed sever pain across the lower back area. First encounter,chart reviewed. D/W CM. * Left hip/buttock pain -likely from multilevel lumbar stenosis at L2/3 L3/4, L4/5. -She has undergone epidural injections in the past with no improvement. 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 Trial of Lidoderm patches and Voltaren cream on back Subjective: Up in chair. Still having pain. No other issues. Objective: Vital Signs Temp Pulse Resp BP Pulse Ox 37.0 C 61 16 137/66 H 95 08/28/17 08:00 08/28/17 09:19 08/28/17 08:00 08/28/17 09:19 08/28/17 08:00 08/27/17 08/28/17 08/29/17 05:59 05:59 05:59 Intake Total 1800 900 Output Total 500 Balance 1800 400 - Physical Exam Constitutional: appears nourished, chronically ill appearing, uncomfortable Eyes: PERRL, anicteric sclera, EOMI Ears, Nose, Mouth, Throat: moist mucous membranes, hearing normal, ears appear normal Cardiovascular: No JVD, No tachycardia, No edema Respiratory: no respiratory distress, no rales or rhonchi, clear to auscultation Gastrointestinal: normoactive bowel sounds, No tenderness, No ascites Skin: warm, normal color, No erythema Musculoskeletal: no joint effusions, pain with ROM, muscular tenderness, generalized weakness Neurologic: AAOx3 Psychiatric: interacting appropriately, not anxious, not encephalopathic, thought process linear ICD10 Worksheet Patient Problems: Problems Problem Status Onset Compression fracture of L1 lumbar vertebra Acute Pain management Acute Primary localized osteoarthritis of left hip Acute Sacral insufficiency fracture Acute
--- NOTE | 2017-08-28 14:47 | ASMTCMCOM ---
CM Note CM Note Notes: Luciana Ramos w [facility] admissions reports they will have no female bed in next 1-2 days. Updated pt who is disappointed but agreeable to referrals to [facility], [facility] and [facility]. Pt states she is also interested in home w 24/hr supervision and HHC (referrals sent in Allscripts). Pt already open w [facility] has 6 hours of care and will see if they can facilitate more care. Pt likely ready for d/c in 1-2 days. CM to follow. Date Signed: 08/28/2017 02:46 PM Electronically Signed By:KANDI Rodas
[2017-08-28] MEDS ORDERED: TRIAMCINOLONE ACETONIDE 200 MG/5 ML MDV IM ONE (16:15)
[2017-08-28] MEDS ORDERED: LIDOCAINE 1% 300 MG/30 ML SDV ONE (16:15)
[2017-08-28] MEDS: DULoxetine 30 MG CAP PO SCH (17:04)
[2017-08-28] MEDS: ATORVASTATIN CALCIUM 20 MG TAB PO SCH (20:59)
[2017-08-28] MEDS: PSYLLIUM METAMUCIL 1 PKT PO SCH (21:05)
--- NOTE | 2017-08-28 22:07 | GCON ---
[f rep st] CONSULTATION CHIEF COMPLAINT: Low back pain, in addition to left hip pain. HISTORY OF PRESENT ILLNESS: Patient presented to the ED a couple of days ago due to severe back pain. She is currently under the management of hospitalist and neurosurgery. Hospitalist asked for us to consult, as Dr. Cohn performed a left total hip arthroplasty in the last couple of months. Patient denies fever and chills. Patient states pain primarily in her lower back which wraps around to her left side, particularly her left groin. PHYSICAL EXAMINATION: GENERAL: The patient is resting comfortably in bed. MUSCULOSKELETAL: Patient is able to move the left leg with no pain. No pain on axial load of that left hip. No pain with internal or external rotation. Patient is moderately tender to the left greater trochanter. Mildly tender to palpation of the right greater trochanter. Patient is severely tender to palpation at SI joint/lumbosacral area. SKIN: No erythema noted around the left total hip arthroplasty incision. PMH: significant for spinal stenosis and LTHA Medications: see chart IMAGING: pelvis and lumbar MRI reviewed show severe stenosis L2/L3, L3/L4, L4/ L5. ASSESSMENT: A [id number] with left hip arthroplasty, presents with acute back pain, most likely due to severe stenosis. PLAN: I do not believe her pain is coming from her left KD. While periprosthetic KD is considered, there is no elevated WBC, no left shift, no fever or chills. I do not think there is any further workup needed for her left hip. May consider a left hip greater trochanter bursa steroid injection if caudal injections do not alleviate pain. I think hip bursitis is a small portion of her pain though. I think the spinal stenosis is the majority of her pain. Appreciate Hospitalist and neurosurgery assistance in managing her care. there are any further issues or concerns regarding her left KD, you are welcome to contact Dr. Cohn or myself, Clotilde. /[id number]/MODL MTDD
[2017-08-29] MEDS: oxyCODONE IR 5 MG TAB PO PRN ×3 (05:56→13:50)
[2017-08-29] MEDS: DICLOFENAC SODIUM 1% 100 GM GEL TP SCH ×4 (06:03→21:10)
--- NOTE | 2017-08-29 09:02 | NEUSURGPN ---
Assessment/Plan: Assessment: 81 yo F with left sacral/buttock pain likely from lumbar stenosis at L2/3, L3/4, L4/5, No acute fracture seen on MRI. Stable, no acute fracture on MRI so she will not need bracing. sacral, Left hip/buttock pain is likely from multilevel lumbar stenosis at L2/3 L3/4, L4/5. underwent Caudal injection yesterday with more relief immediately with her sacral pain but hasn't been up enough yet today to manager retention difference. Plan: -continue medrol dose pack -follow pain with mobilizition after caudal, could take up to 10 days to notice full effect. -continue PT/OT -please call with neuro changes -discussed with Dr Campo Subjective: felt better with her sacral pain immediately following injection, but hasn't been up enought today to notice the difference. NOt complaining of significant pain. Objective: NAD, VSS AAOx3 speech clear and fluent EOMI, PEARLA MAEx4, 11/07= BLE no TTP lumbar spine SILT Urinary Catheter in Place: No - Physician Discussed Patient with : Alber Neurosurgery Physical Exam - Vitals, I&O, Labs I and O 08/28/17 08/29/17 08/30/17 05:59 05:59 05:59 Intake Total 900 1000 Output Total 500 Balance 400 1000 Intake: Oral (ml) 900 1000 Output: Urine (ml) 500 Toilet 500 Other: Intake Quantity Yes Sufficient Number of Voids Toilet 1 2 Number of Stools Toilet 1 Vital Signs Temp Pulse Resp BP Pulse Ox 37.0 C 69 12 156/72 H 93 08/29/17 07:41 08/29/17 07:41 08/29/17 07:41 08/29/17 07:41 08/29/17 07:41 ICD10 Worksheet Patient Problems: Problems Problem Status Onset Compression fracture of L1 lumbar vertebra Acute Pain management Acute Primary localized osteoarthritis of left hip Acute Sacral insufficiency fracture Acute
[2017-08-29] MEDS: ENOXAPARIN 40 MG/0.4 ML SYR SC SCH (09:38)
[2017-08-29] MEDS: VALSARTAN 160 MG TAB PO SCH (09:38)
[2017-08-29] MEDS: ASPIRIN EC 81 MG TAB PO SCH ×2 (09:39→21:10)
[2017-08-29] MEDS: ATENOLOL 50 MG TAB PO SCH (09:39)
[2017-08-29] MEDS: SENNOSIDES 1 TAB PO SCH ×2 (09:39→21:13)
[2017-08-29] MEDS: CHOLECALCIFEROL VIT D3 1,000 UNITS TAB PO SCH (09:39)
[2017-08-29] MEDS: METHOCARBAMOL 750 MG TAB PO PRN ×2 (09:39→17:38)
[2017-08-29] MEDS: DULoxetine 60 MG CAP PO SCH (09:40)
[2017-08-29] MEDS: FAMOTIDINE 20 MG TAB PO SCH ×2 (09:40→21:11)
[2017-08-29] MEDS: CALCIUM CARB W/VIT D 500 MG TAB PO SCH ×2 (09:40→21:10)
[2017-08-29] MEDS: methylPREDNISolone 4 MG TAB PO SCH ×3 (09:46→19:38)
[2017-08-29] MEDS: LIDOCAINE 4%/MENTHOL 1% PATCH TD SCH (09:47)
--- NOTE | 2017-08-29 11:45 | HOSPPROG ---
Hospitalist Progress Note Assessment/Plan: Patient is a 81 y/o female who was dc recently for a sacral insufficiency fracture, she underwent a vertebroplasty. She went to for rehab. Returned home and was doing well until she lifted the porcelain lid off her toilet and developed sever pain across the lower back area. * Left hip/buttock pain -likely from multilevel lumbar stenosis at L2/3 L3/4, L4/5. -She has undergone epidural injections in the past with no improvement. 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 Trial of Lidoderm patches and Voltaren cream on back Subjective: Up in chair. Still having pain. Objective: Vital Signs Temp Pulse Resp BP Pulse Ox 37.0 C 69 12 156/72 H 93 08/29/17 07:41 08/29/17 09:39 08/29/17 07:41 08/29/17 09:39 08/29/17 07:41 08/28/17 08/29/17 08/30/17 05:59 05:59 05:59 Intake Total 900 1000 Output Total 500 Balance 400 1000 - Physical Exam Constitutional: no apparent distress, appears nourished, uncomfortable Eyes: PERRL, anicteric sclera, EOMI Ears, Nose, Mouth, Throat: moist mucous membranes, hearing normal, ears appear normal Cardiovascular: No JVD, No tachycardia, No edema Respiratory: no respiratory distress, no rales or rhonchi, reduced air movement Gastrointestinal: normoactive bowel sounds, No tenderness, No ascites Skin: warm, normal color, No mottled Musculoskeletal: no joint effusions, pain with ROM, generalized weakness Neurologic: AAOx3 Psychiatric: interacting appropriately, not anxious, not encephalopathic, thought process linear ICD10 Worksheet Patient Problems: Problems Problem Status Onset Sacral insufficiency fracture Acute Pain management Acute Compression fracture of L1 lumbar vertebra Acute Primary localized osteoarthritis of left hip Acute
[2017-08-29] MEDS: DULoxetine 30 MG CAP PO SCH (14:00)
[2017-08-29] MEDS: traMADol 50 MG TAB PO PRN (19:37)
[2017-08-29] MEDS: hydrALAZINE 20 MG/ML VIAL IVP PRN (20:02)
[2017-08-29] MEDS ORDERED: methylPREDNISolone 4 MG TAB PO SCH (21:00)
[2017-08-29] MEDS: ATORVASTATIN CALCIUM 20 MG TAB PO SCH (21:10)
[2017-08-29] MEDS: PATCH REMOVAL 1 EA PATCH TD SCH (21:12)
[2017-08-29] MEDS: PSYLLIUM METAMUCIL 1 PKT PO SCH (21:12)
[2017-08-30] MEDS: hydrALAZINE 20 MG/ML VIAL IVP PRN (06:01)
[2017-08-30] MEDS: DICLOFENAC SODIUM 1% 100 GM GEL TP SCH ×2 (06:02→12:57)
[2017-08-30 07:16] VITALS: RESP 16; TEMP 98.2
[2017-08-30] MEDS: methylPREDNISolone 4 MG TAB PO SCH ×2 (08:12→12:36)
[2017-08-30] MEDS: DULoxetine 60 MG CAP PO SCH (08:12)
[2017-08-30] MEDS: FAMOTIDINE 20 MG TAB PO SCH (08:13)
[2017-08-30] MEDS: ATENOLOL 50 MG TAB PO SCH (08:13)
[2017-08-30] MEDS: VALSARTAN 160 MG TAB PO SCH (08:13)
[2017-08-30] MEDS: ASPIRIN EC 81 MG TAB PO SCH (08:14)
[2017-08-30] MEDS: traMADol 50 MG TAB PO PRN (08:14)
[2017-08-30] MEDS: SENNOSIDES 1 TAB PO SCH (08:14)
[2017-08-30] MEDS: ENOXAPARIN 40 MG/0.4 ML SYR SC SCH (08:15)
[2017-08-30] MEDS: METHOCARBAMOL 750 MG TAB PO PRN (08:15)
[2017-08-30] MEDS: LIDOCAINE 4%/MENTHOL 1% PATCH TD SCH (08:15)
[2017-08-30] MEDS: CHOLECALCIFEROL VIT D3 1,000 UNITS TAB PO SCH (08:15)
[2017-08-30] MEDS: CALCIUM CARB W/VIT D 500 MG TAB PO SCH (08:19)
--- NOTE | 2017-08-30 09:54 | ASMTCMCOM ---
CM Note CM Note Notes: Chart reviewed. Met with patient this am. She is still hoping to go to , no beds available as of yesterday. Call placed to check on possibility of bed tomorrow. Patient also accepted to [facility] in [place]. She may also consider home with increased hours from her Home [facility] and [facility]. CM to follow. Date Signed: 08/29/2017 11:55 AM Electronically Signed By:Connie Issa RN
--- NOTE | 2017-08-30 10:02 | ASMTCMCOM ---
CM Note CM Note Notes: Met with patient to discuss dc planning. Neuro PA at bedside. She is agreeable to go to [facility] but is tearful, she continues to complain of pain to her right buttock. She admits she is feeling vulnerable, emotional support provided, Call and spoke to her son Mick per her request. He tells me he has had no conversations with medical staff and knows nothing about what has happened. Provided him with basics and his mother is oriented to converse with him to inform him of her status. She is likely to transfer to [facility] today as has no phone service and I am unable to communicate with them. Reviewed plan of care with hospital medicine as well. DC pending. Date Signed: 08/30/2017 10:01 AM Electronically Signed By:Connie Issa RN
--- NOTE | 2017-08-30 10:12 | NEUSURGPN ---
Assessment/Plan: Assessment: 81 yo F with right sacral/buttock pain likely from lumbar stenosis at L2/3, L3/4, L4/5, No acute fracture seen on MRI. Stable, no acute fracture on MRI so she will not need bracing. sacral, Left hip/buttock pain is likely from multilevel lumbar stenosis at L2/3 L3/4, L4/5. underwent Caudal injection with more relief immediately with her sacral pain but no long lasting. Plan: -continue medrol dose pack -follow pain with mobilizition after caudal, could take up to 10 days to notice full effect. -continue PT/OT -agree with rehab -please call with neuro changes -november f/u with [facility] as outpatient. -discussed with Dr Campo Subjective: continues with pain. INjection immediate relief has waned and now pain is not any better. Pt emotional abot transfer to rehab today Objective: NAD, VSS AAOx3 speech clear and fluent EOMI, PEARLA MAEx4, 11/07= BLE no TTP lumbar spine TTP right glut SILT - Physician Discussed Patient with : Alber Neurosurgery Physical Exam - Vitals, I&O, Labs I and O 08/29/17 08/30/17 08/31/17 05:59 05:59 05:59 Intake Total 1000 400 250 Balance 1000 400 250 Intake: Oral (ml) 1000 400 250 Other: Intake Quantity Yes Sufficient Number of Voids Toilet 2 1 1 Number of Stools Toilet 1 Vital Signs Temp Pulse Resp BP Pulse Ox 36.8 C 70 16 156/67 H 92 08/30/17 07:15 08/30/17 08:13 08/30/17 07:15 08/30/17 08:13 08/30/17 07:15 ICD10 Worksheet Patient Problems: Problems Problem Status Onset Compression fracture of L1 lumbar vertebra Acute Pain management Acute Primary localized osteoarthritis of left hip Acute Sacral insufficiency fracture Acute
--- NOTE | 2017-08-30 10:26 | PDIAF ---
- Diagnosis Diagnosis: back stenosis Code Status: Do Not Resuscitate - Medication Management Discharge Medications: Medications to Continue on Transfer Atenolol [Tenormin 50 mg (*)] 50 mg PO DAILY 03/12/17 [Last Taken 07/13/17] Calcium Carb W/Vit D [Calcium Carb W/Vit D 500/200 (*)] 500 mg PO BID 03/12/17 [ Last Taken 07/13/17 09:00] Cholecalciferol Vit D3 [Vitamin D3 (*)] 1,000 units PO DAILY 03/12/17 [Last Taken 07/13/17] DULoxetine [Cymbalta 30 MG (*)] 30 mg PO 1500 03/12/17 [Last Taken 07/12/17] DULoxetine [Cymbalta 60 MG (*)] 60 mg PO DAILY 03/12/17 [Last Taken 07/13/17] Herbals/Supplements -Info Only 1 ea PO DAILY 03/12/17 [Last Taken Unknown] Multivitamins [Multivitamin (*)] 1 each PO DAILY 03/12/17 [Last Taken 07/13/17] [place]-3 Fatty Acids [Fish Oil 1000 mg (*)] 1,000 mg PO BID 03/12/17 [Last Taken 07/13/17 09:00] Ranitidine HCl 150 mg PO BID 03/12/17 [Last Taken 07/13/17 09:00] Valsartan 320 mg PO DAILY 03/12/17 [Last Taken 07/13/17] Vitamin B Complex [Super B-50 Complex] 1 each PO DAILY 03/12/17 [Last Taken 02/20] methYLPHENIDATE HCL [Ritalin 10mg (*)] 10 mg PO 08,1500 03/12/17 [Last Taken 02/20 08:00] Aspirin EC [Aspirin EC 81 mg (*)] 81 mg PO BID tab 06/12/17 [Last Taken 09:00] oxyCODONE IR [Oxycodone Ir (*)] 5 - 10 mg PO Q3HRS PRN tab 06/12/17 [Last Taken Unknown] Calcium Polycarbophil [FIBERCON] 625 mg PO HS 07/13/17 [Last Taken Unknown] Atorvastatin Calcium [Lipitor 20 mg (*)] 20 mg PO HS 08/25/17 [Last Taken Unknown] Acetaminophen [Tylenol 325mg (*)] 650 mg PO Q4 PRN tab 08/30/17 [Last Taken Unknown] Diclofenac Sodium 1% [Voltaren Gel (*)] 2 gm TP QID gel 08/30/17 [Last Taken Unknown] Ibuprofen [Motrin (*)] 600 mg PO Q6HRS PRN tab 08/30/17 [Last Taken Unknown] Lidocaine 4%/Menthol 1% [Icy Hot Lidocaine/Menthol 4%/1% Patch (*)] 1 patch TD DAILY patch 08/30/17 [Last Taken Unknown] Methocarbamol [Robaxin 750 mg (*)] 750 mg PO TID PRN tab 08/30/17 [Last Taken Unknown] Patch Removal 1 ea TD DAILY21 patch 08/30/17 [Last Taken Unknown] Sennosides [Senokot] 2 tab PO BID tab 08/30/17 [Last Taken Unknown] methylPREDNISolone [Medrol 4mg (*)] 4 mg PO 0730 tab 08/30/17 [Last Taken Unknown] methylPREDNISolone [Medrol 4mg (*)] 4 mg PO 0730,1300,1900,2100 tab 08/30/17 [ Last Taken Unknown] methylPREDNISolone [Medrol 4mg (*)] 4 mg PO 0730,1300,2100 tab 08/30/17 [Last Taken Unknown] methylPREDNISolone [Medrol 4mg (*)] 4 mg PO 0730,2100 tab 08/30/17 [Last Taken Unknown] traMADol [Ultram 50 mg (*)] 50 mg PO Q6HRS PRN tab 08/30/17 [Last Taken Unknown ] Discharge Medications: Refer to the Discharge Home Medication list for PRN reason. PICC Care - Routine: N/A - Orders Services needed: Registered Nurse, Physical Therapy, Occupational Therapy Diet Recommendation: no restrictions on diet - Follow Up Care Current Providers and Referrals: Christiana Galarza MD [Primary Care Provider] - As per Instructions
--- NOTE | 2017-08-30 11:29 | ASMTCMCOM ---
CM Note CM Note Notes: Patient medically cleared for dc. Final orders via allscripts. Transportation arranged. Son is aware that she will transfer at 2 pm and he will meet her at 3pm. CM available should needs arise. Date Signed: 08/30/2017 11:29 AM Electronically Signed By:Connie Issa RN
--- NOTE | 2017-08-30 11:31 | ASMTLACE ---
[facility] Length of stay for Answers: 4-6 days current admission Acuity / Level of Answers: Yes Care: Did the patient have an inpatient admission? Comorbidities - select Answers: Other Notes: HTN, GERD, all that apply # of Emergency department Answers: 1-2 visits in the last 6 months Social determinants Answers: Mental health diagnosis (anxiety, depression, pers onality disorders, etc.) Score: 12 Date Signed: 08/30/2017 11:30 AM Electronically Signed By:Connie Issa RN
[2017-08-30 12:28] VITALS: BP 126/58; PULSE 60; O2SAT 94
[2017-08-30] MEDS: oxyCODONE IR 5 MG TAB PO PRN (12:34)
--- NOTE | 2017-08-30 15:48 | ASMTCMCOM ---
CM Note CM Note Notes: Per [facility] no orders in allscripts. Orders printed and faxed. Receipt confirmed. CM available if needs arise. Date Signed: 08/30/2017 03:47 PM Electronically Signed By:Connie Issa RN
--- NOTE | 2017-08-30 15:51 | ASDISCHSUM ---
Discharge Information Plan Status:SNF Medically Cleared to Leave:08/29/2017 Discharge Date:08/30/2017 02:08 PM D/C Disposition:Prison Facility ADT D/C Disposition:Prison Facility Projected Discharge Date:08/29/2017 11:00 AM Transportation at D/C:Wheelchair Van Discharge Delay Reason: Follow-Up Date:08/29/2017 11:00 AM Discharge Slot: Final Diagnosis: Placement Information Referral Type:*Usp/SNF Referral ID:[id number] Provider Name:Rosa [employer] Address 1[address] Phone Number: Address 2: Fax Number: City:[place] Selection Factors: State:[place] Patient Contact Information Contact Name:GOPI Relationship:Son Address: City:[facility] Phone: State/Zip Code:[place] Email: Financial Information Financial Class:Medicare Primary Plan Desc:MEDICARE INPATIENT Primary Plan Number:[id number] Secondary Plan Desc:[employer]ARP/MDR SUPPLEMENT Secondary Plan Number:[id number] Assessment Information [facility] CM Progress Note CM Note CM Note Notes: Patient admitted with acute L1 compression fracture. Fortunately it's mild and may be able to be managed conservatively if patient is not in too much pain. Patient lives alone and was doing well [employer]. She was at [facility] for 30 days recovering from a sacral insufficiency fracture sustained in July and had been at home for one week prior to this current injury. I sent a referral to [facility] in the case that SNF is recommended. When I went to talk to patient about this, she was sleeping, and the PT who worked with her reported that she was very fatigued during their session. I also called and left a message for her son Wallace. Case Management will follow. Date Signed: 08/26/2017 12:08 PM Electronically Signed By:Lianet Youngblood RN LACE LACE Length of stay for Answers: 4-6 days current admission Acuity / Level of Answers: Yes Care: Did the patient have an inpatient admission? Comorbidities - select Answers: Other Notes: HTN, GERD, all that apply # of Emergency department Answers: 1-2 visits in the last 6 months Social determinants Answers: Mental health diagnosis (anxiety, depression, pers onality disorders, etc.) Score: 12 Date Signed: 08/30/2017 11:30 AM Electronically Signed By:Connie Issa RN [facility] CM Progress Note CM Note CM Note Notes: Patient's son Wallace returned my call. He is very frustrated and overwhelmed by his mother's situation of late, says he is an only child, also unmarried and with no children, so he is dealing with everything on his own. He feels that his mother is in a circular pattern of injury and recovery and that she "overdoes" it at home. We touched on the topics of SNF rehab, Assisted Living, and extra help at home. He doesn't seem clear on which would be best for patient, but he does want to discuss options with her. I mentioned that the hospital would likely recommend SNF for the short term but that we could provide resources on technician terminal and repeater options as well. Patient's son also said that no one had contacted him since her admission, so I asked patient's RN Libra to please call son. Date Signed: 08/26/2017 04:40 PM Electronically Signed By:Lianet Youngblood RN [facility] CM Progress Note CM Note CM Note Notes: Pt does not need 3 midnight stay because she has been at [facility] within last 30 days. will not know until tomorrow if they will have a bed for pt. CM to follow. Date Signed: 08/27/2017 04:15 PM Electronically Signed By:KANDI Rodas [facility] CM Progress Note CM Note CM Note Notes: Luciana Vargasfredi w [facility] admissions reports they will have no female bed in next 1-2 days. Updated pt who is disappointed but agreeable to referrals to [facility], [facility] [employer]. Pt states she is also interested in home w 24/hr supervision and HHC ([facility] Pt already open w [facility] has 6 hours of care and will see if they can facilitate more care. Pt likely ready for d/c in 1-2 days. CM to follow. Date Signed: 08/28/2017 02:46 PM Electronically Signed By:KANDI Rodas [facility] CM Progress Note CM Note CM Note Notes: Chart reviewed. Met with patient this am. She is still hoping to go to , no beds available as of yesterday. Call placed to check on possibility of bed tomorrow. Patient also accepted to [facility] in [place]. She may also consider home with increased hours from her [facility] care and [facility]. CM to follow. Date Signed: 08/29/2017 11:55 AM Electronically Signed By:Connie Issa RN [facility] CM Progress Note CM Note CM Note Notes: Met with patient to discuss dc planning. Neuro PA at bedside. She is agreeable to go to but is tearful, she continues to complain of pain to her right buttock. She admits she is feeling vulnerable, emotional support provided, Call and spoke to her son Mick per her request. He tells me he has had no conversations with medical staff and knows nothing about what has happened. Provided him with basics and his mother is oriented to converse with him to inform him of her status. She is likely to transfer to today as has no phone service and I am unable to communicate with them. Reviewed plan of care with hospital medicine as well. DC pending. Date Signed: 08/30/2017 10:01 AM Electronically Signed By:Connie Issa RN [facility] CM Progress Note CM Note CM Note Notes: Patient medically cleared for dc. Final orders via allscripts. Transportation arranged. Son is aware that she will transfer at 2 pm and he will meet her at 3pm. CM available should needs arise. Date Signed: 08/30/2017 11:29 AM Electronically Signed By:Connie Issa RN [facility] CM Progress Note CM Note CM Note Notes: Per [facility] no orders in allscripts. Orders printed and faxed. Receipt confirmed. CM available if needs arise. Date Signed: 08/30/2017 03:47 PM Electronically Signed By:Connie Issa RN Intervention Information Intervention Type:*IM-Signed Date of Service:08/30/2017 11:27 AM Patient Type:Inpatient Staff Member:UMA Issa Margaret Hours: Discipline: Severity: Comment:
--- NOTE | 2017-08-30 21:00 | GDS ---
[f rep st] DISCHARGE SUMMARY DISCHARGE DIAGNOSES: 1. Left back pain. 2. Lumbar spine stenosis. 3. Hypertension. 4. Possible renal mass. 5. Aortic aneurysm measuring 3.6 cm. CONSULTATIONS: Dr. Cohn. NEUROSURGERY STUDIES AND PROCEDURES DONE: 1. CT of the abdomen. 2. Lumbar injection. PHYSICAL EXAM: GENERAL: The patient is alert. VITAL SIGNS: Afebrile at 36.8, pulse is 60, respira tory rate 16, blood pressure is 126/58. She is saturating 94% on room air. I have seen and evaluated the patient on the day of discharge. HOSPITAL COURSE: The patient is a 81-year-old female who presented to the emergency room with compla ints of back pain. She was evaluated and diagnosed with: 1. Severe lumbar spinal stenosis. During this hospitalization, she received a caudal injection as w ell as a neurosurgical consult. Her pain is subsiding somewhat. She has been started on a Medrol Do sepak and will continue this at the time of disposition. She is recommended to follow up with Neuros urgery in the outpatient setting to discuss further surgical intervention possibilities. 2. Recent sacral insufficiency fracture. She did receive a vertebroplasty regarding this condition, and this does not appear to be bothering her at this time. 3. Left hip pain. Again, she recently had a total hip arthroplasty. She was evaluated by Orthopedi cs during this hospital course. Her pain does not seem to be coming from her left hip. 4. Hypertension. This is managed. 5. Possible renal mass. She is aware of this and will follow up in the outpatient setting for furth er evaluation. 6. Aortic aneurysm. This is measuring 3.6 cm. She is aware that she needs to continue to have this evaluated outside the hospital. 7. Disposition: The patient will be discharged to [facility] for further strengthenin g and conditioning. There are no pending studies. DISCHARGE MEDICATIONS: Please refer to EMR form. The patient has been initiated on a Medrol Dosepak as well as a Lidoderm patch and other supportive medications. FOLLOWUP: Will be with her primary care physician, Dr. Galarza, as well as Neurosurgery, and Mervat Blevins, her general surgeon. I spent greater than 35 minutes in the care, coordination, and management of this patient's dispositi on. /[id number]/MODL
[2017-08-31] MEDS ORDERED: methylPREDNISolone 4 MG TAB PO SCH (07:30)
[2017-09-01] MEDS ORDERED: methylPREDNISolone 4 MG TAB PO SCH (07:30)
[2017-09-02] MEDS ORDERED: methylPREDNISolone 4 MG TAB PO SCH (07:30)
== END 2017-08-30 14:08 | DRG 552 ==
LOC: INTOOBSV 19:00 → F3N 20:17 → OBSVTOIN 08-26 12:50
PROVIDERS: ADMIT Internal Medicine; ATTEND Internal Medicine
PROC: 3E0S33Z Introduction of Anti-inflammatory into Epidural Space, Percutaneous Approach (ICD-10-PCS; principal; 2017-08-28)
DX: M48.061 Spinal stenosis, lumbar region without neurogenic claudication (principal); S32.010A Wedge compression fracture of first lumbar vertebra, initial encounter for closed fracture; X50.0XXA Overexertion from strenuous movement or load, initial encounter; Y92.012 Bathroom of single-family (private) house as the place of occurrence of the external cause; M84.48XD Pathological fracture, other site, subsequent encounter for fracture with routine healing; L89.152 Pressure ulcer of sacral region, stage 2; I71.4 Abdominal aortic aneurysm, without rupture; N28.89 Other specified disorders of kidney and ureter; F32.9 Major depressive disorder, single episode, unspecified; K21.9 Gastro-esophageal reflux disease without esophagitis; I10 Essential (primary) hypertension; F17.210 Nicotine dependence, cigarettes, uncomplicated; Z96.642 Presence of left artificial hip joint; Z66 Do not resuscitate
CPT/HCPCS: 96374; 97110-GP; 97116-GP; 97161-GP; 97166-GO; 97530-GP; 97535-GO; G0378; G8978-GP-CJ; G8979-GP-CI; G8987-GO-CK; G8988-GO-CI; J0360; J1170; J1650; J2270; J2405; J3301; Q9967

== ENCOUNTER → 2017-10-21 | Outpatient (CLI) | payer OTHER, MEDICARE ==
[~2017-10-21] MED LIST changes: -IOPAMIDOL (ISOVUE 370) 100 ML BTL IV ONE; +IOPAMIDOL (ISOVUE-300) 150 ML BTL ONE
== END ==
LOC: CIMAGING 14:50
PROVIDERS: ATTEND Internal Medicine
DX: N28.89 Other specified disorders of kidney and ureter (principal); Z96.642 Presence of left artificial hip joint
CPT/HCPCS: 74178; Q9967

== ENCOUNTER → 2017-12-01 | Outpatient (CLI) | payer OTHER, MEDICARE | LOC: FIMAGING 15:46 | PROVIDERS: ATTEND Neurological Surgery | DX: M54.5 Low back pain (principal); M43.16 Spondylolisthesis, lumbar region; M41.9 Scoliosis, unspecified; S32.010D Wedge compression fracture of first lumbar vertebra, subsequent encounter for fracture with routine healing ==

== ENCOUNTER → 2017-12-07 | Outpatient (CLI) | payer OTHER, MEDICARE | LOC: FIMAGING 13:46 | PROVIDERS: ATTEND Internal Medicine | DX: Z12.31 Encounter for screening mammogram for malignant neoplasm of breast (principal); Z80.3 Family history of malignant neoplasm of breast ==

== ENCOUNTER → 2018-10-04 | Outpatient (CLI) | payer OTHER, MEDICARE ==
[~2018-10-04] MED LIST changes: +IOPAMIDOL (ISOVUE 370) 100 ML BTL IV ONE; -IOPAMIDOL (ISOVUE-300) 150 ML BTL ONE
== END ==
LOC: FIMAGING 14:32
PROVIDERS: ATTEND Surgery
DX: I65.23 Occlusion and stenosis of bilateral carotid arteries (principal); I65.03 Occlusion and stenosis of bilateral vertebral arteries; I72.2 Aneurysm of renal artery; I74.3 Embolism and thrombosis of arteries of the lower extremities; I77.4 Celiac artery compression syndrome; I77.1 Stricture of artery; I73.9 Peripheral vascular disease, unspecified; R91.8 Other nonspecific abnormal finding of lung field; M48.02 Spinal stenosis, cervical region; M47.812 Spondylosis without myelopathy or radiculopathy, cervical region; M47.815 Spondylosis without myelopathy or radiculopathy, thoracolumbar region; Z90.710 Acquired absence of both cervix and uterus
CPT/HCPCS: 70498; 75635; Q9967

== ENCOUNTER → 2018-12-08 | Outpatient (CLI) | payer OTHER, MEDICARE | LOC: FIMAGING 13:13 ==

== ENCOUNTER → 2018-12-14 | Outpatient (CLI) | payer OTHER, MEDICARE | LOC: FIMAGING 14:33 ==

== ENCOUNTER 2018-12-17 07:36 | Inpatient (IN) | payer OTHER, MEDICARE | END 2018-12-20 17:23 | LOC: F2N 07:36 → F3E 12-18 10:30 → F2N 14:46 ==